=== PATIENT | male | born 1945 | race Caucasian/White ===

== ENCOUNTER → 2016-10-12 | Outpatient (CLI) | payer OTHER ==
[~2016-10-12] MED LIST: ACET-1311 PO; AMLO-110 PO; AMLO-114 PO; AMOX1TAB43 PO; ASPI-232 PO; ERGO500037 PO; LVQ750 PO; METO-551 PO; OPTIRAY 320 IV PRN; OXYC2.5T4 PO; RXC5 PO; SULF-183 PO; VTMD PO; ZNTT/150 PO
--- NOTE | 2016-10-12 13:29 | DIAGNOSTIC IMAGING REPORT ---
CT ANGIOGRAM OF THE ABDOMEN, PELVIS, BILATERAL LOWER EXTREMITIES HISTORY: PAIN IN LEGS WHEN WALKING TECHNIQUE: Multiaxial CT images of the abdomen, pelvis, bilateral lower extremities were performed following the use of intravenous contrast to evaluate the arterial structures. Maximal intensity projection images were also obtained. COMPARISON STUDY: None. FINDINGS: There are poststernotomy changes. The heart is borderline enlarged. Focal moderate stenosis at the origin of the celiac artery. No significant stenosis seen within the superior mesenteric artery, inferior mesenteric artery, or renal arteries. Moderate atherosclerotic plaque seen throughout the normal caliber abdominal aorta. The bilateral common iliac and external iliac arteries show no significant stenosis. On the left: The common femoral artery is patent. The majority of the left superficial femoral artery demonstrates multifocal mild to moderate stenosis. At the proximal left superficial femoral artery on image 456 there is approximately 50% stenosis. However, there is approximately 70% stenosis at the distal left superficial femoral artery on image 626. No significant stenosis within the popliteal artery. There is 3 vessel runoff within the left lower leg without significant stenosis. On the right: No significant stenosis within the common femoral artery. There is approximately 50% stenosis at the origin of the right superficial femoral artery. Multifocal [id number] narrowing within the right mid superficial femoral artery. Multifocal areas of moderate to severe narrowing within the distal right superficial femoral artery. This is most pronounced on images 581 and 654 with areas 80-90% stenosis. There is a 5 mm proximal popliteal artery aneurysm on image 705. No significant stenosis within the popliteal artery. There is 3 vessel runoff within the right lower leg without significant stenosis. Subcutaneous edema within the bilateral lower legs and feet. The lung bases are clear. Posterior decompression fusion from L2 through S1 with pedicle screws and rods. Cholecystectomy. The liver, spleen, pancreas, and adrenal glands are unremarkable. The kidneys enhance normally. No hydronephrosis. No retroperitoneal lymphadenopathy. The bladder is unremarkable. No bowel wall thickening or obstruction. A few sigmoid diverticula. IMPRESSION: 1. Multifocal stenosis within the bilateral superficial femoral arteries as described above, right greater than left. 2. There is bilateral three-vessel runoff. 3. Focal moderate stenosis at the origin of the celiac artery of approximately 50%. 4. A 5 mm right popliteal artery aneurysm. Electronically signed by: Kalia Max M.D. 10/12/2016 1:27 PM Dictated Date/Time: 10/12/2016 1:12 PM
== END | disposition home or self-care (01) ==
LOC: C.CTS 12:16
PROVIDERS: ATTEND Internal Medicine
DX: I70.209 Unspecified atherosclerosis of native arteries of extremities, unspecified extremity (principal); R25.2 Cramp and spasm; I72.4 Aneurysm of artery of lower extremity; I25.10 Atherosclerotic heart disease of native coronary artery without angina pectoris; E78.5 Hyperlipidemia, unspecified; I77.4 Celiac artery compression syndrome; Z98.62 Peripheral vascular angioplasty status

== ENCOUNTER 2016-12-21 13:52 | Inpatient (IN) | payer OTHER ==
[~2016-12-21] VITALS: Ht 170.2 cm; Wt 98.7 kg
[~2016-12-21 13:52] MED LIST changes: -ACET-1311 PO; -AMLO-114 PO; -AMOX1TAB43 PO; -ERGO500037 PO; -LVQ750 PO; -OPTIRAY 320 IV PRN; -OXYC2.5T4 PO; -RXC5 PO; -SULF-183 PO; -VTMD PO
[2016-12-21 14:38] LABS: BASO % 0.3 %; BASO ABS # 0.03 K/uL (0-0.2); COMPLETE YES; EOS % 2.6 %; HEMATOCRIT 40.6 % (42-52); IG% 1.7 %; LYMPH % 13.5 %; LYMPH ABS # 1.36 K/uL (1.2-3.4); MEAN CELL VOLUME 86.8 fL (80-100); MEAN CORPUSCULAR HEMOGLOBIN 30.3 pg (25-34); MEAN PLATELET VOLUME 10.3 fL (7.4-10.4); MONO % 11.1 %; NEUT % 70.8 %; PLATELET COUNT 251 K/uL (130-400); RED BLOOD COUNT 4.68 M/uL (4.7-6.1); WHITE BLOOD COUNT 10.11 K/uL (4.8-10.8)
[2016-12-21 14:56] LABS: BUN/CREATININE RATIO 13.7 (10-20); CALCIUM 8.7 mg/dl (8.5-10.1); CREATININE 0.79 mg/dl (0.60-1.40); PARTIAL THROMBOPLASTIN RATIO 1.3; POTASSIUM 3.9 mmol/L (3.5-5.1); PROTHROMBIN TIME (PATIENT) 11.2 SECONDS (9.0-12.0)
[2016-12-21 14:59] LABS: ALB/GLOB RATIO 0.5 (0.9-2)
[2016-12-21] MEDS ORDERED: CEFTRIAXONE SOD INJ 1 GM ADDVIAL IV STA (15:00)
[2016-12-21] MEDS ORDERED: ONDANSETRON INJ 2 MG/ML 2 ML VIAL IV STA (15:00)
[2016-12-21] MEDS ORDERED: VANCOMYCIN INJ 2,000 MG in SODIUM CHLORIDE 0.9% 500ML 500 ML IV STA (15:00)
[2016-12-21] MEDS ORDERED: HYDROmorphone INJ 1 MG/ML SYR IV PRN (15:00)
--- NOTE | 2016-12-21 15:59 | DIAGNOSTIC IMAGING REPORT ---
LEFT LOWER EXTREMITY VENOUS DOPPLER HISTORY: Left leg swelling. EVALUATE FOR DVT COMPARISON STUDY: None. FINDINGS: There is normal compressibility, flow, and augmentation within the left lower extremity deep venous system. Subcutaneous edema within the left lower extremity. IMPRESSION: No DVT within the left lower extremity. Electronically signed by: Kalia Max M.D. 12/21/2016 3:58 PM Dictated Date/Time: 12/21/2016 3:57 PM
--- NOTE | 2016-12-21 16:50 | DIAGNOSTIC IMAGING REPORT ---
ULTRASOUND LEFT LOWER EXTREMITY ARTERIAL CLINICAL HISTORY: Left leg pain. Cellulitis. COMPARISON STUDY: CT angiogram of the left lower extremity dated 10/12/2016. TECHNIQUE: Real-time, grayscale, and color Doppler sonography of the arteries of the left lower extremity is performed from the inguinal crease to the foot. Ankle-brachial indices were not assessed as the patient could not tolerate the procedure. FINDINGS: There is advanced atherosclerotic plaque and irregularity seen throughout the arteries of the left lower extremity. The common femoral artery is patent and demonstrates biphasic waveforms. Velocities in the left common femoral artery measure up to 159 cm/s. The left profunda femoris artery is patent with velocities measuring up to 139 cm/s. There are elevated velocities within the proximal left superficial femoral artery measure up to 277 cm/s. Biphasic waveforms are noted. Velocities in the midportion of the superficial femoral artery measure up to 209 cm/s, and mildly elevated velocities are seen within the distal left superficial femoral artery measuring up to 240 cm/s. There is slight blunting of the arterial upstroke within monophasic to biphasic waveforms in the left popliteal artery and the calf vessels. Velocities in the left popliteal artery measure up to 94 cm/s. There is three-vessel runoff to the left foot. Velocities within the left anterior tibial artery measure 74 cm/s, velocities in the left peroneal artery measure up to 47 cm/s, and velocities in the left posterior tibial artery measure up to 65 cm/s. The left dorsalis pedis artery is patent with velocities measuring up to 69 cm/s. IMPRESSION: 1. Peripheral vascular disease in the left lower extremity as above. No focal vessel cut off is identified in the left lower extremity. 2. There are several foci of increased velocity noted within the left superficial femoral artery consistent with stenoses. This was better characterized on a 10/12/2016 CT angiogram of the left lower extremity. Dictated: 12/21/2016 3:58 PM Transcribed: 12/21/2016 4:50 PM [place] Electronically signed by: Ramses Bermudez M.D. 12/21/2016 4:53 PM Dictated Date/Time: 12/21/2016 3:58 PM
--- NOTE | 2016-12-21 18:15 | EMERGENCY ROOM VISIT NOTE ---
History Report prepared by Lida: Marielos Patterson Under the Supervision of: Dr. Gilmer Cordova M.D. First contact with patient: 14:33 Chief Complaint: LEG PAIN,LEG INJURY Stated Complaint: LEFT LEG SWOLLEN, PAIN History of Present Illness The patient is a 71 year old male who presents to the Emergency Room with complaints of worsening left leg pain which started over 3 days ago. He describes his pain as an ache and currently rates his discomfort as a 8/10 in severity. He was in the [facility] for the past 3 days. He left without being discharged because his leg was increasingly red and painful and presented to the ED here. He reports the redness and pain has spread up to his thigh. He received a dose on Vancomycin and Ancef in the [place] ED. In the hospital, he was receiving Percocet and [place] for pain and Unasyn as an antibiotic. He had a scan on his leg while he was in the hospital, but there was no evidence of any blood clots. He has had cellulitis before in the legs, but it has never been this severe. Pt denies LOC, headache, fevers, chills, diaphoresis, visual changes, neck pain, chest pain, breathing difficulties, nausea, vomiting, abdominal pain, back pain, melena, hematochezia, urinary symptoms, numbness, weakness, lymphadenopathy, or other complaints. Source of History: patient Onset: over 3 days ago Position: leg (left) Symptom Intensity: 8/10 Quality: ache Timing: worsening Note: Pt reports redness and swelling in his leg. Review of Systems See HPI for pertinent positives and negatives. A total of ten systems were reviewed and were otherwise negative. Past Medical & Surgical Medical Problems: (1) Cellulitis (2) Chronic cholecystitis (3) Hypertension Family History Pt reports no pertinent family history. Social History Smoking Status: Never Smoker Marital Status: Housing Status: lives with family Occupation Status: retired Current/Historical Medications Scheduled Amlodipine (Norvasc), 5 MG PO QPM Aspirin (Aspir-81), 81 MG PO QPM Metoprolol Tartrate (Lopressor), 50 MG PO BID Ranitidine (Zantac), 150 MG PO HS Allergies Coded Allergies: Atorvastatin (Unverified Allergy, Unknown, unknown, 12/30/15) Per PCP note Enalapril (Unverified Allergy, Unknown, unknown, 12/30/15) Per PCP note Lovastatin (Unverified Allergy, Unknown, unknown, 12/30/15) Per PCP note Pravastatin (Unverified Allergy, Unknown, unknown, 12/30/15) Per PCP note Simvastatin (Unverified Allergy, Unknown, unknown, 12/30/15) Per PCP note Physical Exam Vital Signs Date Time Temp Pulse Resp B/P Pulse Ox O2 Delivery O2 Flow Rate FiO2 12/21/16 16:20 87 18 146/86 97 Room Air 12/21/16 13:59 37.4 83 18 157/85 98 Room Air Physical Exam GENERAL: Awake, alert, well-appearing, in no distress HENT: Normocephalic, atraumatic. Oropharynx unremarkable. EYES: Normal conjunctiva. Sclera non-icteric. NECK: Supple. No nuchal rigidity. FROM. No JVD. RESPIRATORY: Clear to auscultation. CARDIAC: Regular rate, normal rhythm. Extremities warm and well perfused. Pulses equal. ABDOMEN: Soft, non-distended. No tenderness to palpation. No rebound or guarding. No masses. RECTAL: Deferred. MUSCULOSKELETAL: Chest examination reveals no tenderness. The back is symmetrical on inspection without obvious abnormality. There is no CVA tenderness to palpation. No joint edema. LOWER EXTREMITIES: Left calf is larger than the right. Warmth and erythema extending up to the knee throughout and past the knee to the left lateral thigh. 3+ edema of left lower leg. NEURO: Normal sensorium. No sensory or motor deficits noted. SKIN: No rash or jaundice noted. Medical Decision & Procedures ER Provider Diagnostic Interpretation: Radiology results as stated below per my review and radiologist interpretation. LEFT LOWER EXTREMITY VENOUS DOPPLER HISTORY: Left leg swelling. EVALUATE FOR DVT COMPARISON STUDY: None. FINDINGS: There is normal compressibility, flow, and augmentation within the left lower extremity deep venous system. Subcutaneous edema within the left lower extremity. IMPRESSION: No DVT within the left lower extremity. Electronically signed by: Kalia Max M.D. 12/21/2016 3:58 PM Dictated Date/Time: 12/21/2016 3:57 PM ULTRASOUND LEFT LOWER EXTREMITY ARTERIAL CLINICAL HISTORY: Left leg pain. Cellulitis. COMPARISON STUDY: CT angiogram of the left lower extremity dated 10/12/2016. TECHNIQUE: Real-time, grayscale, and color Doppler sonography of the arteries of the left lower extremity is performed from the inguinal crease to the foot. Ankle-brachial indices were not assessed as the patient could not tolerate the procedure. FINDINGS: There is advanced atherosclerotic plaque and irregularity seen throughout the arteries of the left lower extremity. The common femoral artery is patent and demonstrates biphasic waveforms. Velocities in the left common femoral artery measure up to 159 cm/s. The left profunda femoris artery is patent with velocities measuring up to 139 cm/s. There are elevated velocities within the proximal left superficial femoral artery measure up to 277 cm/s. Biphasic waveforms are noted. Velocities in the midportion of the superficial femoral artery measure up to 209 cm/s, and mildly elevated velocities are seen within the distal left superficial femoral artery measuring up to 240 cm/s. There is slight blunting of the arterial upstroke within monophasic to biphasic waveforms in the left popliteal artery and the calf vessels. Velocities in the left popliteal artery measure up to 94 cm/s. There is three-vessel runoff to the left foot. Velocities within the left anterior tibial artery measure 74 cm/s, velocities in the left peroneal artery measure up to 47 cm/s, and velocities in the left posterior tibial artery measure up to 65 cm/s. The left dorsalis pedis artery is patent with velocities measuring up to 69 cm/s. IMPRESSION: 1. Peripheral vascular disease in the left lower extremity as above. No focal vessel cut off is identified in the left lower extremity. 2. There are several foci of increased velocity noted within the left superficial femoral artery consistent with stenoses. This was better characterized on a 10/12/2016 CT angiogram of the left lower extremity. Electronically signed by: Ramses Bermudez M.D. 12/21/2016 4:53 PM Dictated Date/Time: 12/21/2016 3:58 PM Laboratory Results 12/21/16 14:30 Red Blood Count 4.68, Mean Corpuscular Volume 86.8, Mean Corpuscular Hemoglobin 30.3, Mean Corpuscular Hemoglobin Concent 35.0, Mean Platelet Volume 10.3, Neutrophils (%) (Auto) 70.8, Lymphocytes (%) (Auto) 13.5, Monocytes (%) (Auto) 11.1, Eosinophils (%) (Auto) 2.6, Basophils (%) (Auto) 0.3, Neutrophils # (Auto ) 7.17, Lymphocytes # (Auto) 1.36, Monocytes # (Auto) 1.12, Eosinophils # (Auto ) 0.26, Basophils # (Auto) 0.03 12/21/16 14:30 Test 12/21/16 14:30 White Blood Count 10.11 K/uL (4.8-10.8) Red Blood Count 4.68 M/uL (4.7-6.1) Hemoglobin 14.2 g/dL (14.0-18.0) Hematocrit 40.6 % (42-52) Mean Corpuscular Volume 86.8 fL (80-100) Mean Corpuscular Hemoglobin 30.3 pg (25-34) Mean Corpuscular Hemoglobin Concent 35.0 g/dl (32-36) Platelet Count 251 K/uL (130-400) Mean Platelet Volume 10.3 fL (7.4-10.4) Neutrophils (%) (Auto) 70.8 % Lymphocytes (%) (Auto) 13.5 % Monocytes (%) (Auto) 11.1 % Eosinophils (%) (Auto) 2.6 % Basophils (%) (Auto) 0.3 % Neutrophils # (Auto) 7.17 K/uL (1.4-6.5) Lymphocytes # (Auto) 1.36 K/uL (1.2-3.4) Monocytes # (Auto) 1.12 K/uL (0.11-0.59) Eosinophils # (Auto) 0.26 K/uL (0-0.5) Basophils # (Auto) 0.03 K/uL (0-0.2) RDW Standard Deviation 45.9 fL (36.4-46.3) RDW Coefficient of Variation 14.5 % (11.5-14.5) Immature Granulocyte % (Auto) 1.7 % Immature Granulocyte # (Auto) 0.17 K/uL (0.00-0.02) Erythrocyte Sedimentation Rate > 90 mm/hr (0-14) Prothrombin Time 11.2 SECONDS (9.0-12.0) Prothromb Time International Ratio 1.0 (0.9-1.1) Activated Partial Thromboplast Time 33.7 SECONDS (21.0-31.0) Partial Thromboplastin Ratio 1.3 Anion Gap 7.0 mmol/L (3-11) Est Creatinine Clear Calc Drug Dose 97.4 ml/min Estimated GFR () 106.2 Estimated GFR (Non- 91.6 BUN/Creatinine Ratio 13.7 (10-20) Calcium Level 8.7 mg/dl (8.5-10.1) Total Bilirubin 1.5 mg/dl (0.2-1) Aspartate Amino Transf (AST/SGOT) 86 U/L (15-37) Alanine Aminotransferase (ALT/SGPT) 77 U/L (12-78) Alkaline Phosphatase 384 U/L (45-117) C-Reactive Protein 21.50 mg/dl (0-0.29) Total Protein 7.3 gm/dl (6.4-8.2) Albumin 2.4 gm/dl (3.4-5.0) Globulin 4.9 gm/dl (2.5-4.0) Albumin/Globulin Ratio 0.5 (0.9-2) Laboratory results reviewed by me Medications Administered Medications (Trade) Dose Ordered Sig/Todd Route Start Time Stop Time Status Last Admin Dose Admin Hydromorphone HCl (Dilaudid Inj) 1 mg Q15M PRN IV 12/21/16 15:00 12/21/16 19:52 DC 12/21/16 16:18 1 MG Ondansetron HCl 4 mg 4 mg NOW STAT IV 12/21/16 15:00 12/21/16 15:02 DC 12/21/16 16:18 4 MG Vancomycin HCl/ Sodium Chloride (Vancomycin Inj/ Nss 500ml) 540 ml @ 200 mls/hr ONE STAT IV 12/21/16 15:00 12/21/16 17:41 DC 12/21/16 16:17 200 MLS/HR Ceftriaxone Sodium (Rocephin Inj) 1 gm NOW STAT IV 12/21/16 15:00 12/21/16 15:02 DC 12/21/16 16:17 1 GM ED Course 1452: The patient was evaluated in room C9. A complete history and physical exam was performed. 1500: Rocephin Inj 1 gm IV, Vancomycin HCl 2000 mg/Sodium Chloride 540 ml @ 200 mls/hr IV, Zofran Inj 4 mg IV, Dilaudid 1 mg IV. 1706: I reevaluated the patient. He is feeling better. I discussed the test results and treatment plan with him. He verbalized understanding and agreement. The patient will be evaluated for further management. 172: I discussed the patient's case with ROMEO Mcallister - hospitalist. The patient will be evaluated for further treatment and disposition. Medical Decision Triage Nursing notes reviewed. The patient's presentation and history were concerning for swollen leg. Etiologies such as DVT, joint effusion, infection, trauma, muscular, lymphedema , idiopathic, CHF, as well as others were entertained. Patient was evaluated. Physical examination was concerning for cellulitis. He was previously treated with vancomycin 1 time and then Unasyn as an inpatient [place] [facility] The patient had an unremarkable CBC and coags. Mild increased LFTs. Arterial and venous Doppler of the left leg did not reveal any emergent pathology. The patient was given vancomycin and Rocephin. Consultation was made with internal medicine. The patient was also treated with Dilaudid and Zofran. On reassessment he was feeling much better. The patient was evaluated by internal medicine for further management. The chart was completed utilizing [employer] Speech voice recognition software. Grammatical errors, random word insertions, pronoun errors, and incomplete sentences are an occasional consequence of this system due to software limitations, ambient noise, and hardware issues. Any formal questions or concerns about the content, text, or information contained within the body of this dictation should be directly addressed to the physician for clarification. Consults Time Called: 1722 Consulting Physician: ROMEO Mcallister - hospitalist Returned Call: [phone] Discussed the patient's case. The patient will be evaluated for further treatment and disposition. Impression Primary Impression: Cellulitis Scribe Attestation The scribe's documentation has been prepared under my direction and personally reviewed by me in its entirety. I confirm that the note above accurately reflects all work, treatment, procedures, and medical decision making performed by me. Departure Information Dispostion Being Evaluated By Hospitalist Referrals Urvashi Fuller D.O. (PCP) Patient Instructions [facility]
[2016-12-21] MEDS ORDERED: ONDANSETRON INJ 2 MG/ML 2 ML VIAL IV PRN (18:30)
--- NOTE | 2016-12-21 18:34 | History and Physical ---
History & Physical Date & Time of Service: Dec 21, 2016 at 18:26 Chief Complaint: Left Leg Swollen, Pain Primary Care Physician: Urvashi Fuller D.O. History of Present Illness Source: patient, family, spouse Pt is a 71 yo male who presents to the ER with complaints of worsening left leg pain, swelling and redness which started 5 days ago. Pt reports first going to [facility] [place] where he was put on PO antibiotics but noticed worsening spread of infection from foot to thigh. Pt was told by PCP to go to [place] ER. Pt reports "they kept changing antibiotics" and the infection wasn't getting any better. He left [place] and came to [facility] ED for continuation of tx. He denies any fevers or chills but states pain is too great to even walk. Pt denies any trauma, bites to leg. He has had cellulitis before in the legs, but it has never been this severe. Pt denies LOC, headache, fevers, chills, diaphoresis, visual changes, neck pain, chest pain, breathing difficulties, nausea, vomiting, abdominal pain, back pain, melena, hematochezia, urinary symptoms, numbness, weakness, lymphadenopathy, or other complaints. Past Medical/Surgical History Medical Problems: (1) Cellulitis Status: Resolved (2) Hypertension Status: Chronic Social History Smoking Status: Never Smoker Smokeless Tobacco Use: No Marital Status: Occupational Status: retired Allergies Coded Allergies: Atorvastatin (Unverified Allergy, Unknown, unknown, 12/30/15) Per PCP note Enalapril (Unverified Allergy, Unknown, unknown, 12/30/15) Per PCP note Lovastatin (Unverified Allergy, Unknown, unknown, 12/30/15) Per PCP note Pravastatin (Unverified Allergy, Unknown, unknown, 12/30/15) Per PCP note Simvastatin (Unverified Allergy, Unknown, unknown, 12/30/15) Per PCP note Home Medications Scheduled Amlodipine (Norvasc), 5 MG PO QPM Aspirin (Aspir-81), 81 MG PO QPM Metoprolol Tartrate (Lopressor), 50 MG PO BID Ranitidine (Zantac), 150 MG PO HS Review of Systems Constitutional: No chills, No fever Respiratory: No cough, No sputum Cardiovascular: No chest pain, No orthopnea Abdomen: No nausea, No pain Musculoskeletal: + calf pain, + muscle pain, + swelling, No joint pain Genitourinary - Male: No dysuria, No hematuria, No urinary frequency Psychiatric: No anhedonism, No depression symptoms Endocrine: No excessive thirst, No fatigue Physical Exam Vital Signs Date Time Temp Pulse Resp B/P Pulse Ox O2 Delivery O2 Flow Rate FiO2 12/21/16 16:20 87 18 146/86 97 Room Air 12/21/16 13:59 37.4 83 18 157/85 98 Room Air General Appearance: WD/WN, + mild distress Neck: supple, no adenopathy Respiratory/Chest: lungs clear, normal breath sounds Cardiovascular: no edema, no gallop Abdomen/GI: non tender, soft Extremities/Musculoskelatal: + calf tenderness, + inflammation (left leg redness and swelling) Neurologic/Psych: alert, oriented x 3 Diagnostics Laboratory Results Results Past 24 Hours Test 12/21/16 14:30 12/21/16 18:19 Range/Units White Blood Count 10.11 4.8-10.8 K/uL Red Blood Count 4.68 4.7-6.1 M/uL Hemoglobin 14.2 14.0-18.0 g/dL Hematocrit 40.6 42-52 % Mean Corpuscular Volume 86.8 80-100 fL Mean Corpuscular Hemoglobin 30.3 25-34 pg Mean Corpuscular Hemoglobin Concent 35.0 32-36 g/dl Platelet Count 251 130-400 K/uL Mean Platelet Volume 10.3 7.4-10.4 fL Neutrophils (%) (Auto) 70.8 % Lymphocytes (%) (Auto) 13.5 % Monocytes (%) (Auto) 11.1 % Eosinophils (%) (Auto) 2.6 % Basophils (%) (Auto) 0.3 % Neutrophils # (Auto) 7.17 1.4-6.5 K/uL Lymphocytes # (Auto) 1.36 1.2-3.4 K/uL Monocytes # (Auto) 1.12 0.11-0.59 K/uL Eosinophils # (Auto) 0.26 0-0.5 K/uL Basophils # (Auto) 0.03 0-0.2 K/uL RDW Standard Deviation 45.9 36.4-46.3 fL RDW Coefficient of Variation 14.5 11.5-14.5 % Immature Granulocyte % (Auto) 1.7 % Immature Granulocyte # (Auto) 0.17 0.00-0.02 K/uL Prothrombin Time 11.2 9.0-12.0 SECONDS Prothromb Time International Ratio 1.0 0.9-1.1 Activated Partial Thromboplast Time 33.7 21.0-31.0 SECONDS Partial Thromboplastin Ratio 1.3 Sodium Level 139 136-145 mmol/L Potassium Level 3.9 3.5-5.1 mmol/L Chloride Level 101 98-107 mmol/L Carbon Dioxide Level 31 21-32 mmol/L Anion Gap 7.0 3-11 mmol/L Blood Urea Nitrogen 11 7-18 mg/dl Creatinine 0.79 0.60-1.40 mg/dl Est Creatinine Clear Calc Drug Dose 97.4 ml/min Estimated GFR () 106.2 Estimated GFR (Non- 91.6 BUN/Creatinine Ratio 13.7 10-20 Random Glucose 86 70-99 mg/dl Calcium Level 8.7 8.5-10.1 mg/dl Total Bilirubin 1.5 0.2-1 mg/dl Aspartate Amino Transf (AST/SGOT) 86 15-37 U/L Alanine Aminotransferase (ALT/SGPT) 77 12-78 U/L Alkaline Phosphatase 384 45-117 U/L Total Protein 7.3 6.4-8.2 gm/dl Albumin 2.4 3.4-5.0 gm/dl Globulin 4.9 2.5-4.0 gm/dl Albumin/Globulin Ratio 0.5 0.9-2 Microbiology Results 12/21/16 Blood Culture, Received Pending 12/21/16 Blood Culture, Received Pending Impression Assessment and Plan Pt is a 71 yo male with hx of CABG in 2009, HTN who presents to ER with left leg redness swelling and pain for past 5 days Left leg cellulitis - Will place on rocephin 2 gram IV daily in addition to vancomycin. Blood culture pending at this time. LE US neg for any DVT. No leukocytosis or fevers noted. Pain control with percocet. CAD - S/P CABG in 2009, stable at this time, cont home meds of norvasc, ASA, metoprolol. Pt states allergy to statin HTN - Cont home meds Pt is FULL CODE VTE Prophylaxis VTE Risk Assessment Done? Y/N: Yes Risk Level: Moderate
[2016-12-21 19:10] VITALS: BP 136/83; PULSE 89; TEMP 36.7; O2SAT 97
[2016-12-21] MEDS: OXYCODONE/ACETAMINOPHEN 5-325 TAB PO PRN (20:05)
--- NOTE | 2016-12-21 20:40 | Pharmacy Progress Note ---
Pharmacy Antibiotic Consult Date of Service: Dec 21, 2016. Pharmacy Dosing Scope Pharmacy is consulted to initiate vancomycin IV dosing therapy, order appropriate labs and adjust drug dose/frequency. Subjective The patient is a 71 year old male admitted on Dec 21, 2016 at 18:18. Objective Height (Feet): 5 Height (Inches): 7.00 Weight (Kilograms): 96.000 Lab Results (24hrs): Laboratory Tests Test 12/21/16 14:30 BUN/Creatinine Ratio 13.7 Blood Urea Nitrogen 11 mg/dl Creatinine 0.79 mg/dl White Blood Count 10.11 K/uL Red Blood Count 4.68 M/uL Hemoglobin 14.2 g/dL Hematocrit 40.6 % Mean Corpuscular Volume 86.8 fL Mean Corpuscular Hemoglobin 30.3 pg Mean Corpuscular Hemoglobin Concent 35.0 g/dl Platelet Count 251 K/uL Mean Platelet Volume 10.3 fL Neutrophils (%) (Auto) 70.8 % Lymphocytes (%) (Auto) 13.5 % Monocytes (%) (Auto) 11.1 % Eosinophils (%) (Auto) 2.6 % Basophils (%) (Auto) 0.3 % Neutrophils # (Auto) 7.17 K/uL Lymphocytes # (Auto) 1.36 K/uL Monocytes # (Auto) 1.12 K/uL Eosinophils # (Auto) 0.26 K/uL Basophils # (Auto) 0.03 K/uL Assessment & Plan Assessment * 71 yo M with cellulitis, failed inpatient treatment @ OSH. Currently ordered ceftriaxone and vancomycin * He was at an OSH for the past 3 days. Left AMA 2nd increased pain/swelling of leg * Received a dose of cefazolin and vancomycin in the ED @ OSH. While hospitalized, he was receiving Unasyn * eCrCL 97 mL/min * Received vancomycin 20 mg/kg in the ED here. Will continue with 15 mg/kg IV q12h * Trough prior to 4th overall dose Plan * Vancomycin 1500 mg IV q12h * Trough 12/23 @ 0130 Pharmacy will continue to follow and will adjust dose/frequency as necessary. Thank you
[2016-12-21] MEDS ORDERED: VANCOMYCIN CONSULT ACTIVE PRN (20:45)
[2016-12-21] MEDS ORDERED: VANCOMYCIN INJ 1,000 MG in SODIUM CHLORIDE 0.9% 250ML 250 ML IV SCH (21:00)
[2016-12-21 21:45] VITALS: BP 159/90; PULSE 89
[2016-12-21] MEDS: ASPIRIN 81 MG ECTAB PO SCH (21:48)
[2016-12-21] MEDS: AMLODIPINE BESYLATE 5 MG TAB PO SCH (21:48)
[2016-12-21] MEDS: RANITIDINE HCL 150 MG TAB PO SCH (21:48)
[2016-12-21] MEDS: METOPROLOL TARTRATE 50 MG TAB PO SCH (21:48)
[2016-12-21] MEDS: HEPARIN SOD 5000 UNIT/0.5 ML CARP SQ SCH (21:51)
[2016-12-21 21:53] VITALS: BP 136/83; PULSE 89; TEMP 36.7; Ht 170.2 cm; Wt 98.7 kg
[2016-12-21 23:21] VITALS: BP 137/78; PULSE 83; TEMP 36.7; O2SAT 94
[2016-12-22] VITALS (7 sets, daily range): BP systolic 128–173; BP diastolic 72–94; PULSE 79–91; TEMP 36.6–36.7; O2SAT 94–100
[2016-12-22] MEDS: OXYCODONE/ACETAMINOPHEN 5-325 TAB PO PRN ×5 (00:06→19:18)
[2016-12-22] MEDS: VANCOMYCIN INJ 1,500 MG in SODIUM CHLORIDE 0.9% 500ML 500 ML IV SCH ×2 (02:05→15:05)
[2016-12-22] MEDS: HEPARIN SOD 5000 UNIT/0.5 ML CARP SQ SCH ×3 (05:44→21:50)
[2016-12-22 06:25] LABS: BASO % 0.3 %; BASO ABS # 0.03 K/uL (0-0.2); COMPLETE YES; HEMATOCRIT 41.2 % (42-52); LYMPH % 16.3 %; LYMPH ABS # 1.52 K/uL (1.2-3.4); MEAN CELL VOLUME 88.2 fL (80-100); MEAN CORPUSCULAR HEMOGLOBIN 30.4 pg (25-34); MEAN CORPUSCULAR HGB CONC 34.5 g/dl (32-36); MONO % 12.1 %; NEUT % 65.3 %; PLATELET COUNT 223 K/uL (130-400); RED BLOOD COUNT 4.67 M/uL (4.7-6.1); WHITE BLOOD COUNT 9.32 K/uL (4.8-10.8)
[2016-12-22 07:28] LABS: BUN/CREATININE RATIO 17.4 (10-20); CALCIUM 8.2 mg/dl (8.5-10.1); CREATININE 0.68 mg/dl (0.60-1.40); POTASSIUM 3.6 mmol/L (3.5-5.1)
[2016-12-22] MEDS: METOPROLOL TARTRATE 50 MG TAB PO SCH ×2 (08:09→20:39)
[2016-12-22] MEDS ORDERED: CEFTRIAXONE SOD INJ 2,000 MG in DEXTROSE 5% 50ML 50 ML IV SCH (11:00)
--- NOTE | 2016-12-22 12:52 | Hospitalist Progress Note ---
Hospitalist Progress Note Date of Service Dec 22, 2016. Subjective Pt evaluation today including: conversation w/ patient, chart review Patient states leg slightly improved not moving quickly All Other Systems: Reviewed and Negative Medications Medications (Trade) Dose Ordered Sig/Todd Route Start Time Stop Time Status Last Admin Dose Admin Hydromorphone HCl (Dilaudid Inj) 1 mg Q15M PRN IV 12/21/16 15:00 12/21/16 19:52 DC 12/21/16 16:18 1 MG Ondansetron HCl 4 mg 4 mg NOW STAT IV 12/21/16 15:00 12/21/16 15:02 DC 12/21/16 16:18 4 MG Vancomycin HCl/ Sodium Chloride (Vancomycin Inj/ Nss 500ml) 540 ml @ 200 mls/hr ONE STAT IV 12/21/16 15:00 12/21/16 17:41 DC 12/21/16 16:17 200 MLS/HR Ceftriaxone Sodium (Rocephin Inj) 1 gm NOW STAT IV 12/21/16 15:00 12/21/16 15:02 DC 12/21/16 16:17 1 GM Heparin Sodium (Porcine) 5000 unit 5,000 unit Q8H SQ 12/21/16 22:00 01/20/17 21:59 12/22/16 05:44 5,000 UNIT Ceftriaxone Sodium/Dextrose (Rocephin Inj/D5 50ml) 70 ml @ 100 mls/hr Q24H IV 12/22/16 11:00 01/01/17 10:59 12/22/16 10:42 100 MLS/HR Amlodipine Besylate (Norvasc Tab) 5 mg QPM PO 12/21/16 21:00 01/20/17 20:59 12/21/16 21:48 5 MG Aspirin (Ecotrin Tab) 81 mg QPM PO 12/21/16 21:00 01/20/17 20:59 12/21/16 21:48 81 MG Metoprolol Tartrate (Lopressor Tab) 50 mg BID PO 12/21/16 20:00 01/20/17 20:59 12/22/16 08:09 50 MG Ranitidine HCl (zANTac TAB) 150 mg HS PO 12/21/16 21:00 01/20/17 20:59 12/21/16 21:48 150 MG Oxycodone/ Acetaminophen 1 tab 1 tab Q4H PRN PO 12/21/16 18:45 01/04/17 18:44 12/22/16 10:44 1 TAB Vancomycin HCl/ Sodium Chloride (Vancomycin Inj/ Nss 500ml) 530 ml @ 200 mls/hr Q12@0200,1400 IV 12/22/16 02:00 01/01/17 01:59 12/22/16 02:05 200 MLS/HR Objective Vital Signs Date Time Temp Pulse Resp B/P Pulse Ox O2 Delivery O2 Flow Rate FiO2 12/22/16 08:30 94 Room Air 12/22/16 07:21 36.7 79 16 128/72 94 Room Air 12/22/16 00:01 98 Room Air 12/22/16 00:00 Room Air 12/21/16 23:21 36.7 83 18 137/78 94 Room Air 12/21/16 21:53 36.7 89 20 136/83 12/21/16 21:45 89 159/90 12/21/16 19:10 36.7 89 20 136/83 97 Room Air 12/21/16 18:52 78 18 98 12/21/16 16:20 87 18 146/86 97 Room Air 12/21/16 13:59 37.4 83 18 157/85 98 Room Air Physical Exam General Appearance: WD/WN, no apparent distress Eyes: sclerae normal ENT: hearing grossly normal Neck: trachea midline Respiratory/Chest: chest non-tender, lungs clear Cardiovascular: regular rate, rhythm Extremities: + pertinent finding (cellulitic changes left leg up to calf) Laboratory Results Last 24 Hours Test 12/21/16 14:30 12/22/16 05:19 12/22/16 06:45 White Blood Count 10.11 K/uL 9.32 K/uL Red Blood Count 4.68 M/uL 4.67 M/uL Hemoglobin 14.2 g/dL 14.2 g/dL Hematocrit 40.6 % 41.2 % Mean Corpuscular Volume 86.8 fL 88.2 fL Mean Corpuscular Hemoglobin 30.3 pg 30.4 pg Mean Corpuscular Hemoglobin Concent 35.0 g/dl 34.5 g/dl Platelet Count 251 K/uL 223 K/uL Mean Platelet Volume 10.3 fL 11.0 fL Neutrophils (%) (Auto) 70.8 % 65.3 % Lymphocytes (%) (Auto) 13.5 % 16.3 % Monocytes (%) (Auto) 11.1 % 12.1 % Eosinophils (%) (Auto) 2.6 % 4.0 % Basophils (%) (Auto) 0.3 % 0.3 % Neutrophils # (Auto) 7.17 K/uL 6.08 K/uL Lymphocytes # (Auto) 1.36 K/uL 1.52 K/uL Monocytes # (Auto) 1.12 K/uL 1.13 K/uL Eosinophils # (Auto) 0.26 K/uL 0.37 K/uL Basophils # (Auto) 0.03 K/uL 0.03 K/uL RDW Standard Deviation 45.9 fL 47.9 fL RDW Coefficient of Variation 14.5 % 14.9 % Immature Granulocyte % (Auto) 1.7 % 2.0 % Immature Granulocyte # (Auto) 0.17 K/uL 0.19 K/uL Erythrocyte Sedimentation Rate > 90 mm/hr Prothrombin Time 11.2 SECONDS Prothromb Time International Ratio 1.0 Activated Partial Thromboplast Time 33.7 SECONDS Partial Thromboplastin Ratio 1.3 Sodium Level 139 mmol/L 139 mmol/L Potassium Level 3.9 mmol/L 3.6 mmol/L Chloride Level 101 mmol/L 104 mmol/L Carbon Dioxide Level 31 mmol/L 28 mmol/L Anion Gap 7.0 mmol/L 7.0 mmol/L Blood Urea Nitrogen 11 mg/dl 12 mg/dl Creatinine 0.79 mg/dl 0.68 mg/dl Est Creatinine Clear Calc Drug Dose 97.4 ml/min 114.8 ml/min Estimated GFR () 106.2 112.9 Estimated GFR (Non- 91.6 97.4 BUN/Creatinine Ratio 13.7 17.4 Random Glucose 86 mg/dl 93 mg/dl Calcium Level 8.7 mg/dl 8.2 mg/dl Total Bilirubin 1.5 mg/dl Aspartate Amino Transf (AST/SGOT) 86 U/L Alanine Aminotransferase (ALT/SGPT) 77 U/L Alkaline Phosphatase 384 U/L C-Reactive Protein 21.50 mg/dl Total Protein 7.3 gm/dl Albumin 2.4 gm/dl Globulin 4.9 gm/dl Albumin/Globulin Ratio 0.5 Assessment and Plan (1) Cellulitis Assessment & Plan: monitor progress and change ceftriaxone to unasyn with otoniel (2) Hypertension (3) DVT prophylaxis Assessment & Plan: heparin q 8 hours
[2016-12-22] MEDS: AMPICILLIN/SULBACTAM SOD INJ 3,000 MG in SODIUM CHLORIDE 0.9% 100ML 100 ML IV SCH ×2 (13:55→19:05)
[2016-12-22] MEDS: ASPIRIN 81 MG ECTAB PO SCH (20:39)
[2016-12-22] MEDS: AMLODIPINE BESYLATE 5 MG TAB PO SCH (20:40)
[2016-12-22] MEDS: RANITIDINE HCL 150 MG TAB PO SCH (20:40)
[2016-12-23] MEDS: OXYCODONE/ACETAMINOPHEN 5-325 TAB PO PRN ×3 (00:35→12:42)
[2016-12-23] MEDS: AMPICILLIN/SULBACTAM SOD INJ 3,000 MG in SODIUM CHLORIDE 0.9% 100ML 100 ML IV SCH ×4 (00:35→18:29)
[2016-12-23] MEDS ORDERED: MAGNESIUM HYDROXIDE SUSP 30 ML UDC ONE (00:46)
[2016-12-23] MEDS ORDERED: MAGNESIUM HYDROXIDE SUSP 30 ML UDC PO PRN (01:00)
[2016-12-23] MEDS ORDERED: NURSING VERBAL MED ORDER ONE (01:00)
[2016-12-23] MEDS ORDERED: VANCOMYCIN TROUGH ONE (01:30)
[2016-12-23] MEDS: VANCOMYCIN INJ 1,500 MG in SODIUM CHLORIDE 0.9% 500ML 500 ML IV SCH ×2 (01:49→13:39)
[2016-12-23 05:31] LABS: MEAN CELL VOLUME 87.5 fL (80-100); MEAN CORPUSCULAR HGB CONC 34.3 g/dl (32-36); PLATELET COUNT 301 K/uL (130-400); WHITE BLOOD COUNT 10.68 K/uL (4.8-10.8)
[2016-12-23 06:07] LABS: COMPLETE YES; EOSINOPHIL % 1.7 %; LYMPH ABS # 2.14 K/uL (1.2-3.4); METAMYELOCYTE % 0.9 %; NEUTROPHILS % 69.6 %
[2016-12-23 06:20] LABS: BLOOD UREA NITROGEN 12 mg/dl (7-18); BUN/CREATININE RATIO 16.6 (10-20); CALCIUM 7.8 mg/dl (8.5-10.1); CARBON DIOXIDE 31 mmol/L (21-32); CHLORIDE 105 mmol/L (98-107); CREATININE 0.73 mg/dl (0.60-1.40); GLUCOSE 126 mg/dl (70-99); SODIUM 140 mmol/L (136-145)
[2016-12-23] MEDS: HEPARIN SOD 5000 UNIT/0.5 ML CARP SQ SCH ×3 (06:37→21:32)
[2016-12-23 06:59] VITALS: BP 175/98; PULSE 74; PULSE 77; TEMP 36.8; O2SAT 100
[2016-12-23] MEDS: METOPROLOL TARTRATE 50 MG TAB PO SCH ×2 (07:26→20:11)
[2016-12-23 07:30] VITALS: O2SAT 100
[2016-12-23] MEDS: ACETAMINOPHEN 325 MG TAB PO PRN ×2 (10:09→21:33)
--- NOTE | 2016-12-23 13:34 | Pharmacy Progress Note ---
Pharmacy Antibiotic Prog Note Date of Service: Dec 23, 2016. Subjective: The patient is currently receiving Vancomycin 1500mg IV q12h. The patient is currently on day #3 of IV therapy. Objective: Height (Feet): 5 Height (Inches): 7.00 Weight (Kilograms): 98.700 Levels: Item Value Date Time Vancomycin Level Trough 10.5 mcg/ml 12/23/16 0149 Lab Results (24hrs): Laboratory Tests Test 12/23/16 05:20 BUN/Creatinine Ratio 16.6 Blood Urea Nitrogen 12 mg/dl Creatinine 0.73 mg/dl White Blood Count 10.68 K/uL Red Blood Count 4.00 M/uL Hemoglobin 12.0 g/dL Hematocrit 35.0 % Mean Corpuscular Volume 87.5 fL Mean Corpuscular Hemoglobin 30.0 pg Mean Corpuscular Hemoglobin Concent 34.3 g/dl Platelet Count 301 K/uL Mean Platelet Volume 10.0 fL Micro Results: Item Value Date Time Blood Culture - Preliminary Resulted 12/21/16 1500 Blood NO GROWTH TO DATE. Blood Culture - Preliminary Resulted 12/21/16 1510 Blood NO GROWTH TO DATE. Recent Pertinent Medications: Item Value Date Time Vancomycin HCl 540 ml @ 200 mls/hr 12/21/16 1500 2000 mg/Sodium ONE STAT/IV 12/21/16 1617 Chloride Vancomycin HCl 530 ml @ 200 mls/hr 12/22/16 0200 1500 mg/Sodium Q12@0200,1400/IV 12/23/16 0149 Chloride Item Value Date Time Ampicillin Sodium/ 108 ml @ 200 mls/hr 12/22/16 1300 Sulbactam Sodium Q6H/IV 12/23/16 1158 3000 mg/Sodium Chloride Assessment & Plan: Vancomycin * 71 yo M admitted with cellulitis (failed inpt tx @ [facility]) * Goal trough level: 10-20mcg/mL * Trough level drawn: 10.5mcg/mL --> Therapeutic * Continue: Vancomycin 1500mg IV q12h * Pt may be at increased risk for accumulation due to BMI ~ 34kg/m2 * Trough level recheck ordered for: 12/25/16 0200 dose Pharmacy will continue to follow and will adjust dose/frequency as necessary. Thank you
--- NOTE | 2016-12-23 13:55 | Hospitalist Progress Note ---
Hospitalist Progress Note Date of Service Dec 23, 2016. Subjective Pt evaluation today including: conversation w/ patient Pain: pain alleviated with percocet patient with no complaints other than pain which is improving with continued tx Medications Medications (Trade) Dose Ordered Sig/Todd Route Start Time Stop Time Status Last Admin Dose Admin Magnesium Hydroxide (Milk Of Magnesia Susp) 30 ml STK-MED ONCE .ROUTE 12/23/16 00:46 12/23/16 00:50 DC 12/23/16 01:13 30 ML Objective Vital Signs Date Time Temp Pulse Resp B/P Pulse Ox O2 Delivery O2 Flow Rate FiO2 12/23/16 07:30 100 Room Air 12/23/16 06:59 36.8 74 20 175/98 100 Room Air 77 12/23/16 00:00 Room Air 12/22/16 23:58 36.7 79 18 134/80 97 Room Air 12/22/16 20:37 91 173/94 12/22/16 16:00 100 Room Air 12/22/16 15:20 36.6 82 20 167/91 100 Room Air Physical Exam General Appearance: no apparent distress Eyes: normal inspection, sclerae normal ENT: hearing grossly normal Neck: trachea midline Respiratory/Chest: lungs clear Cardiovascular: regular rate, rhythm Abdomen: normal bowel sounds Extremities: normal range of motion Neurologic/Psychiatric: alert, normal mood/affect Skin: normal color Laboratory Results Last 24 Hours Test 12/23/16 01:49 12/23/16 05:20 12/23/16 07:00 Vancomycin Level Trough 10.5 mcg/ml White Blood Count 10.68 K/uL Red Blood Count 4.00 M/uL Hemoglobin 12.0 g/dL Hematocrit 35.0 % Mean Corpuscular Volume 87.5 fL Mean Corpuscular Hemoglobin 30.0 pg Mean Corpuscular Hemoglobin Concent 34.3 g/dl Platelet Count 301 K/uL Mean Platelet Volume 10.0 fL RDW Standard Deviation 47.0 fL RDW Coefficient of Variation 14.6 % Neutrophils % (Manual) 69.6 % Lymphocytes % (Manual) 20.0 % Monocytes % (Manual) 7.8 % Eosinophils % (Manual) 1.7 % Metamyelocytes % 0.9 % Neutrophils # (Manual) 7.43 K/uL Total Absolute Neutrophils 7.43 K/uL Lymphocytes # (Manual) 2.14 K/uL Total Absolute Lymphocytes 2.14 K/uL Monocytes # (Manual) 0.83 K/uL Eosinophils # (Manual) 0.18 K/uL Metamyelocytes # 0.10 K/uL Sodium Level 140 mmol/L Potassium Level mmol/L 4.4 mmol/L Chloride Level 105 mmol/L Carbon Dioxide Level 31 mmol/L Anion Gap 4.0 mmol/L Blood Urea Nitrogen 12 mg/dl Creatinine 0.73 mg/dl Est Creatinine Clear Calc Drug Dose 106.9 ml/min Estimated GFR () 109.7 Estimated GFR (Non- 94.6 BUN/Creatinine Ratio 16.6 Random Glucose 126 mg/dl Calcium Level 7.8 mg/dl Assessment and Plan (1) Cellulitis Assessment & Plan: Will continue Unasyn and Vanco....patient is responding to tx. Will change percocet ot oxycodone and have tylenol as needed. (2) Hypertension (3) DVT prophylaxis
[2016-12-23] MEDS ORDERED: AMLODIPINE BESYLATE 5 MG TAB PO ONE (14:15)
[2016-12-23 15:40] VITALS: BP 165/94; PULSE 75; TEMP 36.5; O2SAT 98
[2016-12-23 15:57] VITALS: BP 146/82; PULSE 82
[2016-12-23] MEDS: OXYCODONE HCL IR 5 MG TAB (IMMEDIATE RELEASE) PO PRN ×2 (19:24→23:43)
[2016-12-23] MEDS: ASPIRIN 81 MG ECTAB PO SCH (20:11)
[2016-12-23] MEDS: RANITIDINE HCL 150 MG TAB PO SCH (20:11)
[2016-12-23 23:42] VITALS: BP 146/84; PULSE 70; TEMP 36.7; O2SAT 98
[2016-12-24] MEDS: AMPICILLIN/SULBACTAM SOD INJ 3,000 MG in SODIUM CHLORIDE 0.9% 100ML 100 ML IV SCH ×4 (00:54→18:05)
[2016-12-24] MEDS: VANCOMYCIN INJ 1,500 MG in SODIUM CHLORIDE 0.9% 500ML 500 ML IV SCH ×2 (01:38→14:03)
[2016-12-24] MEDS: OXYCODONE HCL IR 5 MG TAB (IMMEDIATE RELEASE) PO PRN ×4 (04:29→17:38)
[2016-12-24 05:33] LABS: BASO % 0.3 %; BASO ABS # 0.03 K/uL (0-0.2); COMPLETE YES; EOS % 5.8 %; HEMATOCRIT 38.5 % (42-52); IG% 3.6 %; LYMPH % 16.4 %; LYMPH ABS # 1.65 K/uL (1.2-3.4); MEAN CELL VOLUME 90.4 fL (80-100); MEAN CORPUSCULAR HEMOGLOBIN 30.8 pg (25-34); MEAN PLATELET VOLUME 10.3 fL (7.4-10.4); MONO % 8.5 %; NEUT % 65.4 %; PLATELET COUNT 363 K/uL (130-400); RED BLOOD COUNT 4.26 M/uL (4.7-6.1); WHITE BLOOD COUNT 10.07 K/uL (4.8-10.8)
[2016-12-24 05:59] LABS: CALCIUM 8.1 mg/dl (8.5-10.1); CREATININE 0.82 mg/dl (0.60-1.40); POTASSIUM 4.1 mmol/L (3.5-5.1)
[2016-12-24] MEDS: HEPARIN SOD 5000 UNIT/0.5 ML CARP SQ SCH ×3 (06:00→20:38)
[2016-12-24 07:23] VITALS: BP 128/75; PULSE 75; TEMP 36.5; O2SAT 95
[2016-12-24] MEDS: AMLODIPINE BESYLATE 5 MG TAB PO SCH (08:30)
[2016-12-24] MEDS: METOPROLOL TARTRATE 50 MG TAB PO SCH ×2 (08:31→20:37)
[2016-12-24 11:30] VITALS: O2SAT 95
[2016-12-24 15:59] VITALS: BP 146/77; PULSE 82; TEMP 36.8; O2SAT 99
--- NOTE | 2016-12-24 17:04 | Hospitalist Progress Note ---
Hospitalist Progress Note Date of Service Dec 24, 2016. Subjective Pt evaluation today including: conversation w/ patient patient with no complaints pain increased when he goes to bathroom has an appointment with a vascular surgeon on Sunday Objective Vital Signs Date Time Temp Pulse Resp B/P Pulse Ox O2 Delivery O2 Flow Rate FiO2 12/24/16 15:59 36.8 82 18 146/77 99 Room Air 12/24/16 11:30 95 Room Air 12/24/16 07:23 36.5 75 18 128/75 95 Room Air 12/23/16 23:45 Room Air 12/23/16 23:42 36.7 70 20 146/84 98 Room Air Physical Exam General Appearance: no apparent distress Eyes: normal inspection, sclerae normal ENT: hearing grossly normal Neck: supple, trachea midline Respiratory/Chest: lungs clear Cardiovascular: regular rate, rhythm Abdomen: normal bowel sounds, non tender, soft Extremities: + swelling (cellulitis changes decreasing on daily basis.) Laboratory Results Last 24 Hours Test 12/24/16 05:10 White Blood Count 10.07 K/uL Red Blood Count 4.26 M/uL Hemoglobin 13.1 g/dL Hematocrit 38.5 % Mean Corpuscular Volume 90.4 fL Mean Corpuscular Hemoglobin 30.8 pg Mean Corpuscular Hemoglobin Concent 34.0 g/dl Platelet Count 363 K/uL Mean Platelet Volume 10.3 fL Neutrophils (%) (Auto) 65.4 % Lymphocytes (%) (Auto) 16.4 % Monocytes (%) (Auto) 8.5 % Eosinophils (%) (Auto) 5.8 % Basophils (%) (Auto) 0.3 % Neutrophils # (Auto) 6.59 K/uL Lymphocytes # (Auto) 1.65 K/uL Monocytes # (Auto) 0.86 K/uL Eosinophils # (Auto) 0.58 K/uL Basophils # (Auto) 0.03 K/uL RDW Standard Deviation 49.1 fL RDW Coefficient of Variation 15.0 % Immature Granulocyte % (Auto) 3.6 % Immature Granulocyte # (Auto) 0.36 K/uL Sodium Level 140 mmol/L Potassium Level 4.1 mmol/L Chloride Level 105 mmol/L Carbon Dioxide Level 28 mmol/L Anion Gap 7.0 mmol/L Blood Urea Nitrogen 10 mg/dl Creatinine 0.82 mg/dl Est Creatinine Clear Calc Drug Dose 95.2 ml/min Estimated GFR () 104.6 Estimated GFR (Non- 90.2 BUN/Creatinine Ratio 12.0 Random Glucose 87 mg/dl Calcium Level 8.1 mg/dl Assessment and Plan (1) Cellulitis Assessment & Plan: Will continue Unasyn and Vanco....patient is responding to tx. Patient continues to respond to current tx. Continue for 24-48 more hours and than dc. Anticipate discharge prior to vascular surgery appointment on Sunday. If this is not the case he can cancel on Sunday (2) Hypertension (3) DVT prophylaxis Assessment & Plan: heparin sq
[2016-12-24] MEDS: ASPIRIN 81 MG ECTAB PO SCH (20:37)
[2016-12-24] MEDS: RANITIDINE HCL 150 MG TAB PO SCH (20:37)
[2016-12-24 23:46] VITALS: BP 138/80; PULSE 71; TEMP 36.8; O2SAT 97
[2016-12-25] VITALS: O2SAT 95
[2016-12-25] MEDS: AMPICILLIN/SULBACTAM SOD INJ 3,000 MG in SODIUM CHLORIDE 0.9% 100ML 100 ML IV SCH ×4 (01:11→19:32)
[2016-12-25] MEDS: OXYCODONE HCL IR 5 MG TAB (IMMEDIATE RELEASE) PO PRN ×5 (01:14→23:40)
[2016-12-25] MEDS ORDERED: VANCOMYCIN TROUGH SCH (01:30)
[2016-12-25] MEDS: VANCOMYCIN INJ 1,500 MG in SODIUM CHLORIDE 0.9% 500ML 500 ML IV SCH (02:03)
[2016-12-25 05:33] LABS: BASO % 0.3 %; BASO ABS # 0.03 K/uL (0-0.2); COMPLETE YES; EOS % 5.2 %; HEMATOCRIT 37.5 % (42-52); LYMPH % 17.8 %; LYMPH ABS # 1.86 K/uL (1.2-3.4); MEAN CELL VOLUME 88.7 fL (80-100); MEAN CORPUSCULAR HEMOGLOBIN 29.8 pg (25-34); MEAN CORPUSCULAR HGB CONC 33.6 g/dl (32-36); MEAN PLATELET VOLUME 9.7 fL (7.4-10.4); MONO % 8.5 %; NEUT % 66.2 %; PLATELET COUNT 409 K/uL (130-400); RED BLOOD COUNT 4.23 M/uL (4.7-6.1); WHITE BLOOD COUNT 10.46 K/uL (4.8-10.8)
[2016-12-25] MEDS: HEPARIN SOD 5000 UNIT/0.5 ML CARP SQ SCH ×3 (05:55→21:17)
[2016-12-25 05:56] LABS: BUN/CREATININE RATIO 11.6 (10-20); CALCIUM 8.1 mg/dl (8.5-10.1); CREATININE 0.95 mg/dl (0.60-1.40); POTASSIUM 4.6 mmol/L (3.5-5.1)
[2016-12-25 07:19] VITALS: BP 127/75; PULSE 73; TEMP 36.8; O2SAT 96
[2016-12-25] MEDS: METOPROLOL TARTRATE 50 MG TAB PO SCH ×2 (07:33→19:36)
[2016-12-25] MEDS: AMLODIPINE BESYLATE 5 MG TAB PO SCH (07:33)
[2016-12-25 08:30] VITALS: O2SAT 96
--- NOTE | 2016-12-25 10:10 | Pharmacy Progress Note ---
Pharmacy Antibiotic Prog Note Date of Service: Dec 25, 2016. Subjective: The patient is currently receiving Vancomycin 1500 mg (~15mg/kg) IV every 12 hours for cellulitis that failed initial treatment at [facility]. The patient is currently on day # 510 of Vancomycin IV therapy. Objective: Height (Feet): 5 Height (Inches): 7.00 Weight (Kilograms): 98.700 Levels: Item Value Date Time Vancomycin Level Trough 13.0 mcg/ml 12/25/16 0135 Vancomycin Level Trough 10.5 mcg/ml 12/23/16 0149 Lab Results (24hrs): Laboratory Tests Test 12/25/16 05:20 BUN/Creatinine Ratio 11.6 Blood Urea Nitrogen 11 mg/dl Creatinine 0.95 mg/dl White Blood Count 10.46 K/uL Red Blood Count 4.23 M/uL Hemoglobin 12.6 g/dL Hematocrit 37.5 % Mean Corpuscular Volume 88.7 fL Mean Corpuscular Hemoglobin 29.8 pg Mean Corpuscular Hemoglobin Concent 33.6 g/dl Platelet Count 409 K/uL Mean Platelet Volume 9.7 fL Neutrophils (%) (Auto) 66.2 % Lymphocytes (%) (Auto) 17.8 % Monocytes (%) (Auto) 8.5 % Eosinophils (%) (Auto) 5.2 % Basophils (%) (Auto) 0.3 % Neutrophils # (Auto) 6.93 K/uL Lymphocytes # (Auto) 1.86 K/uL Monocytes # (Auto) 0.89 K/uL Eosinophils # (Auto) 0.54 K/uL Basophils # (Auto) 0.03 K/uL Micro Results: Item Value Date Time Blood Culture - Preliminary Resulted 12/21/16 1510 Blood NO GROWTH TO DATE. Blood Culture - Preliminary Resulted 12/21/16 1500 Blood NO GROWTH TO DATE. Recent Pertinent Medications: Item Value Date Time Ampicillin Sodium/ 108 ml @ 200 mls/hr 12/22/16 1300 Sulbactam Sodium Q6H/IV 12/25/16 0733 3000 mg/Sodium Chloride Ceftriaxone 70 ml @ 100 mls/hr 12/22/16 1100 Sodium 2000 mg/ Q24H/IV 12/22/16 1042 Dextrose Vancomycin HCl 540 ml @ 200 mls/hr 12/21/16 1500 2000 mg/Sodium ONE STAT/IV 12/21/16 1617 Chloride Pharmacy Consult Vancomycin HCl 530 ml @ 200 mls/hr 12/22/16 0200 1500 mg/Sodium Q12@0200,1400/IV 12/25/16 0203 Chloride Pharmacy Consult Assessment & Plan: Pharmacy has been consulted to dose and monitor Vancomycin for cellulitis that failed initial therapy at [facility]. Vancomycin trough level of 13mcg/mL is: slightly Subtherapeutic * Change to Vancomycin 1700 mg (~17mg/kg) IV every 12 hours. * Dose increased by ~13% in order to increase serum concentrations by ~13% and achieve therapeutic levels * Goal trough level estimate: ~15 mcg/mL. * Trough level has been ordered for: ~30 minutes before the 0200 dose to ensure therapeutic concentrations without causing Vancomycin accumulation and toxicity. Pharmacy will continue to follow and will adjust dose/frequency as necessary. Thank you
--- NOTE | 2016-12-25 13:22 | Progress Note ---
Subjective Date of Service: Dec 25, 2016. Subjective Pt evaluation today including: conversation w/ patient, physical exam, chart review, lab review, review of studies, review of inpatient medication list Review of Systems Constitutional: + fatigue, No chills, No fever Respiratory: No cough, No shortness of breath, No sputum, No wheezing Cardiac: No chest pain, No orthopnea Abdomen: No constipation, No diarrhea, No nausea, No pain, No vomiting Musculoskeletal: No joint pain, No muscle pain Male : No dysuria, No urinary frequency Objective Vital Signs Date Time Temp Pulse Resp B/P Pulse Ox O2 Delivery O2 Flow Rate FiO2 12/25/16 08:30 96 Room Air 12/25/16 07:19 36.8 73 16 127/75 96 Room Air 12/25/16 00:00 95 Room Air 12/24/16 23:46 36.8 71 18 138/80 97 Room Air 12/24/16 16:00 Room Air 12/24/16 15:59 36.8 82 18 146/77 99 Room Air Physical Exam General Appearance: WD/WN, no apparent distress Neck: supple, no adenopathy Respiratory/Chest: lungs clear, normal breath sounds Cardiovascular: no edema, no gallop Abdomen: non tender, soft Neurologic/Psychiatric: alert, oriented x 3 Laboratory Results Last 24 Hours Test 12/25/16 01:35 12/25/16 05:20 Vancomycin Level Trough 13.0 mcg/ml White Blood Count 10.46 K/uL Red Blood Count 4.23 M/uL Hemoglobin 12.6 g/dL Hematocrit 37.5 % Mean Corpuscular Volume 88.7 fL Mean Corpuscular Hemoglobin 29.8 pg Mean Corpuscular Hemoglobin Concent 33.6 g/dl Platelet Count 409 K/uL Mean Platelet Volume 9.7 fL Neutrophils (%) (Auto) 66.2 % Lymphocytes (%) (Auto) 17.8 % Monocytes (%) (Auto) 8.5 % Eosinophils (%) (Auto) 5.2 % Basophils (%) (Auto) 0.3 % Neutrophils # (Auto) 6.93 K/uL Lymphocytes # (Auto) 1.86 K/uL Monocytes # (Auto) 0.89 K/uL Eosinophils # (Auto) 0.54 K/uL Basophils # (Auto) 0.03 K/uL RDW Standard Deviation 47.5 fL RDW Coefficient of Variation 14.7 % Immature Granulocyte % (Auto) 2.0 % Immature Granulocyte # (Auto) 0.21 K/uL Sodium Level 141 mmol/L Potassium Level 4.6 mmol/L Chloride Level 106 mmol/L Carbon Dioxide Level 30 mmol/L Anion Gap 5.0 mmol/L Blood Urea Nitrogen 11 mg/dl Creatinine 0.95 mg/dl Est Creatinine Clear Calc Drug Dose 82.2 ml/min Estimated GFR () 94.3 Estimated GFR (Non- 81.3 BUN/Creatinine Ratio 11.6 Random Glucose 95 mg/dl Calcium Level 8.1 mg/dl Assessment and Plan (1) Cellulitis (2) Hypertension (3) DVT prophylaxis Pt is a 71 yo male with hx of CABG in 2009, HTN who presents to ER with left leg redness swelling and pain for past 5 days Left leg cellulitis - Initially on rocephin 2 gram IV daily in addition to vancomycin then switched to unasyn and vanc. Blood culture NGTD. LE US neg for any DVT. No leukocytosis or fevers noted. Pain control with percocet. Can likely convert to PO antibx in next 24 hrs. CAD - S/P CABG in 2009, stable at this time, cont home meds of norvasc, ASA, metoprolol. Pt states allergy to statin HTN - Cont home meds Pt is FULL CODE
[2016-12-25] MEDS: VANCOMYCIN INJ 1,700 MG in SODIUM CHLORIDE 0.9% 500ML 500 ML IV SCH (15:13)
[2016-12-25 15:55] VITALS: BP 166/78; PULSE 73; TEMP 36.7; O2SAT 97
[2016-12-25 16:30] VITALS: O2SAT 96
[2016-12-25] MEDS: ASPIRIN 81 MG ECTAB PO SCH (19:36)
[2016-12-25] MEDS: RANITIDINE HCL 150 MG TAB PO SCH (19:36)
[2016-12-25 20:00] VITALS: BP 132/78; PULSE 76
[2016-12-26 00:34] VITALS: BP 136/79; PULSE 71; TEMP 36.6; O2SAT 98
[2016-12-26] MEDS: AMPICILLIN/SULBACTAM SOD INJ 3,000 MG in SODIUM CHLORIDE 0.9% 100ML 100 ML IV SCH ×4 (01:27→19:11)
[2016-12-26] MEDS: VANCOMYCIN INJ 1,700 MG in SODIUM CHLORIDE 0.9% 500ML 500 ML IV SCH ×2 (02:25→13:59)
[2016-12-26] MEDS: OXYCODONE HCL IR 5 MG TAB (IMMEDIATE RELEASE) PO PRN ×4 (05:57→21:09)
[2016-12-26] MEDS: HEPARIN SOD 5000 UNIT/0.5 ML CARP SQ SCH ×3 (05:59→21:06)
[2016-12-26 06:46] LABS: BASO % 0.4 %; BASO ABS # 0.04 K/uL (0-0.2); COMPLETE YES; EOS % 4.7 %; IG% 1.3 %; LYMPH ABS # 1.79 K/uL (1.2-3.4); MEAN CELL VOLUME 89.6 fL (80-100); MEAN CORPUSCULAR HEMOGLOBIN 30.3 pg (25-34); MEAN CORPUSCULAR HGB CONC 33.9 g/dl (32-36); MEAN PLATELET VOLUME 9.6 fL (7.4-10.4); MONO % 10.3 %; NEUT % 63.3 %; PLATELET COUNT 413 K/uL (130-400); RED BLOOD COUNT 4.02 M/uL (4.7-6.1); WHITE BLOOD COUNT 8.93 K/uL (4.8-10.8)
[2016-12-26 07:15] LABS: BUN/CREATININE RATIO 16.5 (10-20); CALCIUM 7.8 mg/dl (8.5-10.1); CREATININE 0.74 mg/dl (0.60-1.40)
[2016-12-26] MEDS: AMLODIPINE BESYLATE 5 MG TAB PO SCH (08:32)
[2016-12-26] MEDS: METOPROLOL TARTRATE 50 MG TAB PO SCH ×2 (08:32→19:40)
[2016-12-26] MEDS: ACETAMINOPHEN 325 MG TAB PO PRN (08:32)
[2016-12-26 08:38] VITALS: BP 135/74; PULSE 79
[2016-12-26 15:31] VITALS: BP 118/70; PULSE 67; TEMP 36.5; O2SAT 98
[2016-12-26] MEDS: ASPIRIN 81 MG ECTAB PO SCH (20:58)
[2016-12-26] MEDS: RANITIDINE HCL 150 MG TAB PO SCH (20:58)
--- NOTE | 2016-12-26 23:35 | Progress Note ---
Subjective Date of Service: Dec 26, 2016. Subjective Pt evaluation today including: conversation w/ patient, physical exam, chart review, lab review, review of studies (doppler - arterial - left leg; venous doppler left leg), review of inpatient medication list Pain: minimal left leg PO Intake: good/improved Voiding: no voiding problems patient reports significant improvement in the redness/swelling/pain of left leg. he shows a picture he took of his left leg prior to initiation of IV abx therapy and there is marked improvement of the leg. he reports claudication with walking at home (calf pain). he was to see Dr. Pacheco tomorrow for his PAD. Review of Systems Constitutional: No chills, No fever Respiratory: No cough, No dyspnea on exertion, No shortness of breath Cardiac: No chest pain, No orthopnea Abdomen: No pain Objective Vital Signs Date Time Temp Pulse Resp B/P Pulse Ox O2 Delivery O2 Flow Rate FiO2 12/26/16 16:00 Room Air 12/26/16 15:31 36.5 67 18 118/70 98 Room Air 12/26/16 08:38 79 135/74 12/26/16 08:30 Room Air 12/26/16 00:34 36.6 71 20 136/79 98 Room Air 12/26/16 00:00 Room Air Physical Exam General Appearance: no apparent distress ENT: pharynx normal Neck: no JVD Respiratory/Chest: lungs clear, no respiratory distress, no accessory muscle use Cardiovascular: regular rate, rhythm, no gallop, no murmur Abdomen: normal bowel sounds, non tender, soft, no organomegaly Extremities: + swelling (extends from ankle to the left knee region), + pertinent finding (lymphedema, left foot/ankle) Neurologic/Psychiatric: alert, oriented x 3 Skin: + pertinent finding (mild cellulitis present of left leg - extends from inferior to the left knee to above the left ankle; some of the erythema wraps posteriorly to the calf) Comments: pulses - femoral 1+; popliteal <1+; DP and pos tib pulses <1+ (bilateral legs) Laboratory Results Last 24 Hours Test 12/26/16 06:20 White Blood Count 8.93 K/uL Red Blood Count 4.02 M/uL Hemoglobin 12.2 g/dL Hematocrit 36.0 % Mean Corpuscular Volume 89.6 fL Mean Corpuscular Hemoglobin 30.3 pg Mean Corpuscular Hemoglobin Concent 33.9 g/dl Platelet Count 413 K/uL Mean Platelet Volume 9.6 fL Neutrophils (%) (Auto) 63.3 % Lymphocytes (%) (Auto) 20.0 % Monocytes (%) (Auto) 10.3 % Eosinophils (%) (Auto) 4.7 % Basophils (%) (Auto) 0.4 % Neutrophils # (Auto) 5.64 K/uL Lymphocytes # (Auto) 1.79 K/uL Monocytes # (Auto) 0.92 K/uL Eosinophils # (Auto) 0.42 K/uL Basophils # (Auto) 0.04 K/uL RDW Standard Deviation 48.5 fL RDW Coefficient of Variation 14.8 % Immature Granulocyte % (Auto) 1.3 % Immature Granulocyte # (Auto) 0.12 K/uL Sodium Level 140 mmol/L Potassium Level 4.0 mmol/L Chloride Level 106 mmol/L Carbon Dioxide Level 24 mmol/L Anion Gap 10.0 mmol/L Blood Urea Nitrogen 12 mg/dl Creatinine 0.74 mg/dl Est Creatinine Clear Calc Drug Dose 105.5 ml/min Estimated GFR () 109.1 Estimated GFR (Non- 94.1 BUN/Creatinine Ratio 16.5 Random Glucose 80 mg/dl Calcium Level 7.8 mg/dl Assessment and Plan (1) Cellulitis (2) Hypertension (3) DVT prophylaxis 71yo male: 1. LLE cellulitis - improved/resolving. Can likely transition to PO abx in the AM. Today is day #6 of abx. 2. PAD - known. Needs outpt f/u with vascular surgery. Continue asa. Check lipids as outpatient and treat with high-dose statin therapy. 3. HTN - controlled with current meds. 4. DVT proph - heparin TID. 5. abnormal alk phos - recheck LFTs am. also check vit D as alk phos will be elevated with vit D def. 6. hypoalbuminemia - etiology? needs outpatient f/u. hopefully d/c home tomorrow Continued [facility] stay due to: multiple IV medications needed Discharge planning: home
[2016-12-27 00:22] VITALS: BP 138/82; PULSE 67; TEMP 36.7; O2SAT 97
[2016-12-27] MEDS ORDERED: VANCOMYCIN TROUGH SCH (01:30)
[2016-12-27] MEDS: HEPARIN SOD 5000 UNIT/0.5 ML CARP SQ SCH ×2 (05:58→14:43)
[2016-12-27 06:36] LABS: CREATININE 0.79 mg/dl (0.60-1.40)
[2016-12-27 07:43] VITALS: BP 126/72; PULSE 67; TEMP 36.5; O2SAT 96
[2016-12-27] MEDS: AMLODIPINE BESYLATE 5 MG TAB PO SCH (08:17)
[2016-12-27] MEDS: METOPROLOL TARTRATE 50 MG TAB PO SCH (08:17)
[2016-12-27] MEDS: AMOXICILLIN/CLAVULANATE TAB 875 MG TAB PO SCH ×2 (08:20→16:54)
[2016-12-27] MEDS: SULFAMETHOXAZOLE/TRIMETHOPRIM DS 800/160MG TAB PO SCH ×2 (08:20→16:54)
[2016-12-27] MEDS: OXYCODONE HCL IR 5 MG TAB (IMMEDIATE RELEASE) PO PRN ×2 (08:22→16:19)
[2016-12-27] MEDS: ACETAMINOPHEN 325 MG TAB PO PRN (11:48)
--- NOTE | 2016-12-27 15:13 | Surgery Consultation ---
Consultation Date of Service Dec 27, 2016. Chief Complaint PAD, claudication History of Present Illness The patient is a 71 year old male with hx of HTN, hyperlipidemia, and lumbar spinal problems, seen in consultation today for PAD with claudication. Pt currently admitted d/t cellulitis of LLE and had been scheduled to see Dr Pacheco in office this week, however, was admitted and cx his appt. Pt admits chronic BLE edema, but states his LLE was much worse, with pain and erythema, so came to ED. Admits BLE calf claudication at approx 30 yds which resolves within a few minutes. He states he is able to walk farther before stopping if he has a shopping cart to lean on. Has hx of lumbar spinal fusions x [address] Castro. Denies any back pain, numbness, or tingling of BLE. Pt states his calf claudication is disruptive to his lifestyle, which is very active. 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 Denies KELLY, fever, chills, chest pain, SOB, abd pain, N/V, rest pain, nonhealing wounds or ulcerations, other complaints. Vitals Vital Signs Past 12 Hours Date Time Temp Pulse Resp B/P Pulse Ox O2 Delivery O2 Flow Rate FiO2 12/27/16 08:00 Room Air 12/27/16 07:43 36.5 67 16 126/72 96 Room Air Allergies Coded Allergies: Atorvastatin (Unverified Allergy, Unknown, unknown, 12/30/15) Per PCP note Enalapril (Unverified Allergy, Unknown, unknown, 12/30/15) Per PCP note Lovastatin (Unverified Allergy, Unknown, unknown, 12/30/15) Per PCP note Pravastatin (Unverified Allergy, Unknown, unknown, 12/30/15) Per PCP note Simvastatin (Unverified Allergy, Unknown, unknown, 12/30/15) Per PCP note Home Medications Scheduled Amlodipine (Norvasc), 5 MG PO QPM Aspirin (Aspir-81), 81 MG PO QPM Metoprolol Tartrate (Lopressor), 50 MG PO BID Ranitidine (Zantac), 150 MG PO HS Problem List Medical Problems: (1) Cellulitis (2) Chronic cholecystitis (3) DVT prophylaxis (4) Hypertension Surgical / Medical History Hx Cardiac Surgery: Yes Hx Abdominal Surgery: Yes Hx Cancer Surgery: No Hx Thoracic Surgery: Yes Hx Orthopedic: Yes Hx Urinary Tract Surgery: No HX Other Surgery: No Past Medical/Surgical History: High Cholesterol, Hypertension Family History + HTN Social History Smoking Status: Former Smoker Hx Tobacco Use In Past Year?: No Hx Alcohol Use - Type & Amnt: Yes (Beer (unspecified)) Hx Substance Use -Type & Amnt: No Review of Systems Constitutional: No chills, No fever, No malaise Skin: + change in color Eyes: No visual changes ENMT: No sore throat Respiratory: No MUNOZ, No cough, No hemoptysis, No short of breath Cardiovascular: + edema, + intermittent claudication, No chest pain, No palpitations, No syncope Gastrointestinal: No abdominal pain, No nausea, No vomiting Musculoskeletal: No back pain Neurologic: No dizziness, No headache, No numbness, No weakness Physical Exam Constitutional: General Apperance: heathly-appearing, well-nourished, well-developed Level of Distress: NAD Ambulation: ambulating normally Psychiatric: Mental Status: active & alert, normal mood, normal affect Orientation: oriented except where noted, to time, to place, to person Memory: recent memory normal, remote memory normal Head: normocephalic, atraumatic Eyes: EOM: EOMI ENMT: normal ENT inspection, hearing grossly normal Neck: supple, trachea midline Lungs: Respiratory effort: no dyspnea Auscultation: breath sounds normal, no wheezing, no rales/crackles Cardiovascular: Apical Impulse: not displaced Heart Auscultation: RRR, no rubs, no gallops Peripheral Pulses: Pulses: full and equal, in all extremities except if noted Bruits: none appreciated Carotid Pulse: normal on the left, normal on the right Brachial Pulses: normal on the left, normal on the right Radial Pulse: normal on the left, normal on the right Ulnar Pulse: normal on the left, normal on the right Femoral Pulse: normal on the left, normal on the right Posterior Tibialis Pulse: decreased on the left, decreased on the right, doppler (Biphasic LLE, triphasic RLE) Dorsalis Pedis Pulse: decreased on the left, decreased on the right, doppler (biphasic LLE, triphasic RLE) Abdomen: Bowel Sounds: normal Inspection & Palpation: soft, non-distended, no tenderness, guarding & rebound Musculoskeletal: normal strength (5/5 throughout), normal tone Extremities: Upper Right: no cyanosis, no edema, no varicosities Upper Left: no cyanosis, no edema, no varicosities Lower Right: no cyanosis, no varicosities, edema Lower Left: no cyanosis, no varicosities, no palpable cord, edema, pertinent finding (erythema, warmth to anterior LLE) Neurologic: Cranial Nerves: grossly intact Sensation: grossly intact Assessment and Plan ASSESSMENT and PLAN: mild PAD popliteal aneurysm Claudication Pt discussed with Dr Pacheco, who also reviewed pt's US and CTA, does not recommend any vascular surgical intervention at this time. Pt has sx of BLE claudication, however, imaging and exam demonstrate only mild disease. Pt's sx more consistent with neurogenic claudication. D/T hx of multiple lumbar spinal surgeries, advised pt to discuss his sx with his spine surgeon. Will see in office in 1 year to reevaluate popliteal art aneurysm. Pt agreeable. Please call if needed.
[2016-12-27 15:20] VITALS: BP 157/81; PULSE 75; TEMP 36.5; O2SAT 98
[2016-12-27] MEDS ORDERED: AMOX1TAB43 PO (16:42)
[2016-12-27] MEDS ORDERED: AMLO-114 PO (16:42)
[2016-12-27] MEDS ORDERED: SULF-183 PO (16:42)
[2016-12-27] MEDS ORDERED: RXC5 PO (16:42)
--- NOTE | 2016-12-27 16:54 | Discharge Instructions ---
Discharge Instructions Date of Service Dec 27, 2016. Admission Reason for Admission: Cellulitis Discharge Discharge Diagnosis / Problem: skin infection (cellulitis) of left leg Discharge Goals Goal(s): Learn about illness, Diagnostic testing, Therapeutic intervention Activity Recommendations Activity Limitations: resume your previous activity (as tolerated) . Instructions / Follow-Up Instructions / Follow-Up From Dr. Bautista - 1. left leg cellulitis/infection - * please take 2 antibiotics for 7 days each; each antibiotic is twice a day * ok to prop up the leg on a pillow or two when relaxing at home to help with swelling but do not prop the leg while sleeping at night * do not drink alcohol while on antibiotics * start the antibiotics TOMORROW on 12/28/16 2. for pain - * may take oxycodone 5mg every 4 hours as needed for pain * do NOT drive or drink alcohol while taking pain pills * the pain medication can cause constipation and sedation 3. for vitamin D deficiency - * take ergocalciferol 50871 unit capsule twice a week for 8 weeks * have your family doctor recheck your vitamin D level in about 2 months to ensure it has normalized * your vitamin D level was 11 (normal is 30 and up) 4. abnormal liver function tests - * I am concerned that you may have some form of chronic liver disease * please stop all alcohol consumption if at all possible * at the very least you are going to need repeat liver function tests and possible a liver ultrasound - your family doctor can arrange this 5. vascular disease of the legs - * continue your aspirin once a day * see Dr. Pacheco in 1 year 6. leg pains - * Dr. Pacheco's team feels the leg pain may be from your back / spine * please follow-up with your back doctor at your convenience to discuss this possibility 7. high blood pressure - * your norvasc (amlodipine) dose has been increased to 10mg once daily * new prescription given; start this tomorrow on 12/28/16 8. Please see your family doctor as scheduled to have the leg looked at again and to ensure full resolution. 9. See your family doctor right away or return to any emergency department with any fever over 100.5 degrees, worsening redness or pain of the left leg, etc. Current Hospital Diet Patient's current hospital diet: AHA Diet (Heart Healthy) Discharge Diet Recommended Diet: AHA Diet (Heart Healthy) Procedures Procedures Performed: arterial doppler study of legs showing peripheral arterial disease. venous doppler study of left leg without evidence for blood clot/DVT. Pending Studies Studies pending at discharge: no Medical Emergencies . Who to Call and When: Medical Emergencies: If at any time you feel your situation is an emergency, please call 911 immediately. . Non-Emergent Contact Non-Emergency issues call your: Primary Care Provider Call Non-Emergent contact if: temperature is above 100.5, your pain is not controlled, your pain is worsening, your pain is unusual for you, your pain is concerning you, you have any medication questions . . "Provider Documentation" section prepared by Iván Bautista. VTE Core Measure Inpt VTE Proph given/why not?: Unfractionated heparin SQ
[2016-12-27] MEDS ORDERED: VTMD PO (16:55)
[2016-12-27 17:17] VITALS: BP 157/81; PULSE 75; TEMP 36.5; O2SAT 98
--- NOTE | 2017-01-04 21:32 | Discharge Summary ---
Discharge Summary Date of Service Jan 04, 2017. Discharge Summary Admission Date: Dec 21, 2016 at 18:18 Discharge Date: Dec 27, 2016 Discharge Disposition: Home Principal Diagnosis: cellulitis, LLE Problems/Secondary Diagnoses: 1. HTN 2. vitamin D deficiency 3. abnormal alkaline phosphatase 4. hypoalbuminemia 5. concern of liver disease - to be determined 6. peripheral arterial disease Procedures: 1. arterial doppler, left leg - FINDINGS: There is advanced atherosclerotic plaque and irregularity seen throughout the arteries of the left lower extremity. The common femoral artery is patent and demonstrates biphasic waveforms. Velocities in the left common femoral artery measure up to 159 cm/s. The left profunda femoris artery is patent with velocities measuring up to 139 cm/s. There are elevated velocities within the proximal left superficial femoral artery measure up to 277 cm/s. Biphasic waveforms are noted. Velocities in the midportion of the superficial femoral artery measure up to 209 cm/s, and mildly elevated velocities are seen within the distal left superficial femoral artery measuring up to 240 cm/s. There is slight blunting of the arterial upstroke within monophasic to biphasic waveforms in the left popliteal artery and the calf vessels. Velocities in the left popliteal artery measure up to 94 cm/s. There is three-vessel runoff to the left foot. Velocities within the left anterior tibial artery measure 74 cm/s, velocities in the left peroneal artery measure up to 47 cm/s, and velocities in the left posterior tibial artery measure up to 65 cm/s. The left dorsalis pedis artery is patent with velocities measuring up to 69 cm/s. IMPRESSION: 1. Peripheral vascular disease in the left lower extremity as above. No focal vessel cut off is identified in the left lower extremity. 2. There are several foci of increased velocity noted within the left superficial femoral artery consistent with stenoses. This was better characterized on a 10/12/2016 CT angiogram of the left lower extremity. 2. venous doppler, left leg - NO DVT Consultations: vascular surgery - CHRISTAL Nolasco / John Pacheco MD Medication Reconciliation New Medications: Ergocalciferol (Vitamin D) 50,000 Interunit Cap 87731 UNITS PO TWICE A WEEK, #8 CAP 1 Refill Amoxicillin & Pot Clavulanate (Amoxicillin/Clavulanate P) 1 Tab Tab 875 MG PO BIDM for 7 Days, #14 TAB 0 Refills Oxycodone HCl (Oxycodone HCl) 5 Mg Tab 5 MG PO Q4 PRN for Pain, #15 TAB 0 Refills Sulfamethoxazole-Trimethoprim (Smz-Tmp Ds) 1 Tab Tab 1 TAB PO Q12 for 7 Days, #14 TAB 0 Refills Changed Medications: Amlodipine (Norvasc) 10 Mg Tab 10 MG PO DAILY for 30 Days, #30 TAB 2 Refills (Changed from: Amlodipine (Norvasc ) 5 Mg Tab 5 Mg PO QPM) Continued Medications: Aspirin (Aspir-81) 81 Mg Tab 81 MG PO QPM Metoprolol Tartrate (Lopressor) 50 Mg Tab 50 MG PO BID, TAB Ranitidine (Zantac) 150 Mg Tab 150 MG PO HS, TAB Discharge Exam Physical Exam: General Appearance: no apparent distress ENT: pharynx normal Neck: no JVD Respiratory/Chest: lungs clear, no respiratory distress, no accessory muscle use Cardiovascular: regular rate, rhythm, no gallop, no murmur, normal peripheral pulses Abdomen / GI: normal bowel sounds, non tender, soft, no organomegaly Extremities: + pedal edema (left foot/ankle; ?lymphedema), + swelling ( edema extending from the left ankle up to the left knee region) Neurologic/Psychiatric: alert, oriented x 3 Skin: + pertinent finding (resolving cellulitis/erythema of LLE; most of the erythema extended from just below the left knee down to about the level of the ankle ) Hospital Course (1) Cellulitis (2) Hypertension (3) DVT prophylaxis HISTORY OF PRESENT ILLNESS: Pt is a 71yo male who presents to the ER with complaints of worsening left leg pain, swelling and redness which started 5 days ago. Pt reports first going to [facility] where he was put on PO antibiotics but noticed worsening spread of infection from foot to thigh. Pt was told by PCP to go to [facility]. Pt reports "they kept changing antibiotics" and the infection wasn't getting any better. He left [facility] and came to [facility] ED for continuation of treatment. He denies any fevers or chills but states pain is too great to even walk. Pt denies any trauma, bites to leg. He has had cellulitis before in the legs, but it has never been this severe. Pt denies LOC, headache, fevers, chills, diaphoresis, visual changes, neck pain, chest pain, breathing difficulties, nausea, vomiting, abdominal pain, back pain, melena, hematochezia, urinary symptoms, numbness, weakness, lymphadenopathy, or other complaints. HOSPITAL COURSE: The patient's LLE cellulitis was treated with IV antibiotic therapy and gradually improved over his 6-day stay. Blood cultures remained negative while here. Venous doppler study of the left leg was negative for DVT. Arterial doppler study showed mild PAD but the left leg has sufficient blood flow for adequate healing. He was seen formally by vascular surgery due to his chronic complaints of leg claudication and the arterial doppler findings. Vascular surgery felt that many of his symptoms could be neurogenic in origin from lumbar spine disease. Vascular surgery recommended follow-up with a back specialist after discharge. He will complete a 7-day course of both augmentin and bactrim after discharge. Other problems addressed included the following - 1. vitamin D deficiency - he will take an 8-week course of ergocalciferol 41168 Units. Repeat vitamin D level is recommended following the completion. Vitamin D level was 11. 2. hypoalbuminemia and elevated alkaline phosphatase - Mr. Parry admits to regular alcohol use. He needs a dedicated liver ultrasound to exclude developing liver disease/ cirrhosis. He may need other blood work to rule out chronic liver disease as well. He was counseled about the abnormal liver tests. Alcohol moderation or abstinence was stressed. 12/26/16 06:20 Red Blood Count 4.02, Mean Corpuscular Volume 89.6, Mean Corpuscular Hemoglobin 30.3, Mean Corpuscular Hemoglobin Concent 33.9, Mean Platelet Volume 9.6, Neutrophils (%) (Auto) 63.3, Lymphocytes (%) (Auto) 20.0, Monocytes (%) (Auto) 10.3, Eosinophils (%) (Auto) 4.7, Basophils (%) (Auto) 0.4, Neutrophils # (Auto ) 5.64, Lymphocytes # (Auto) 1.79, Monocytes # (Auto) 0.92, Eosinophils # (Auto ) 0.42, Basophils # (Auto) 0.04 12/26/16 06:20 12/27/16 05:32 Test 12/21/16 14:30 12/23/16 05:20 12/25/16 01:35 12/26/16 06:20 Erythrocyte Sedimentation Rate > 90 mm/hr (0-14) Prothrombin Time 11.2 SECONDS (9.0-12.0) Prothromb Time International Ratio 1.0 (0.9-1.1) Activated Partial Thromboplast Time 33.7 SECONDS (21.0-31.0) Partial Thromboplastin Ratio 1.3 C-Reactive Protein 21.50 mg/dl (0-0.29) Globulin 4.9 gm/dl (2.5-4.0) Albumin/Globulin Ratio 0.5 (0.9-2) Neutrophils % (Manual) 69.6 % Lymphocytes % (Manual) 20.0 % Monocytes % (Manual) 7.8 % Eosinophils % (Manual) 1.7 % Metamyelocytes % 0.9 % Neutrophils # (Manual) 7.43 K/uL (1.4-6.5) Total Absolute Neutrophils 7.43 K/uL (1.4-6.5) Lymphocytes # (Manual) 2.14 K/uL (1.2-3.4) Total Absolute Lymphocytes 2.14 K/uL (1.2-3.4) Monocytes # (Manual) 0.83 K/uL (0.11-0.59) Eosinophils # (Manual) 0.18 K/uL (0-0.5) Metamyelocytes # 0.10 K/uL (0-0) Vancomycin Level Trough 13.0 mcg/ml (SEE COMMENT) White Blood Count 8.93 K/uL (4.8-10.8) Red Blood Count 4.02 M/uL (4.7-6.1) Hemoglobin 12.2 g/dL (14.0-18.0) Hematocrit 36.0 % (42-52) Mean Corpuscular Volume 89.6 fL (80-100) Mean Corpuscular Hemoglobin 30.3 pg (25-34) Mean Corpuscular Hemoglobin Concent 33.9 g/dl (32-36) Platelet Count 413 K/uL (130-400) Mean Platelet Volume 9.6 fL (7.4-10.4) Neutrophils (%) (Auto) 63.3 % Lymphocytes (%) (Auto) 20.0 % Monocytes (%) (Auto) 10.3 % Eosinophils (%) (Auto) 4.7 % Basophils (%) (Auto) 0.4 % Neutrophils # (Auto) 5.64 K/uL (1.4-6.5) Lymphocytes # (Auto) 1.79 K/uL (1.2-3.4) Monocytes # (Auto) 0.92 K/uL (0.11-0.59) Eosinophils # (Auto) 0.42 K/uL (0-0.5) Basophils # (Auto) 0.04 K/uL (0-0.2) RDW Standard Deviation 48.5 fL (36.4-46.3) RDW Coefficient of Variation 14.8 % (11.5-14.5) Immature Granulocyte % (Auto) 1.3 % Immature Granulocyte # (Auto) 0.12 K/uL (0.00-0.02) Anion Gap 10.0 mmol/L (3-11) BUN/Creatinine Ratio 16.5 (10-20) Calcium Level 7.8 mg/dl (8.5-10.1) Test 12/27/16 05:32 Est Creatinine Clear Calc Drug Dose 98.8 ml/min Estimated GFR () 106.2 Estimated GFR (Non- 91.6 Total Bilirubin 0.6 mg/dl (0.2-1) Direct Bilirubin 0.2 mg/dl (0-0.2) Aspartate Amino Transf (AST/SGOT) 29 U/L (15-37) Alanine Aminotransferase (ALT/SGPT) 36 U/L (12-78) Alkaline Phosphatase 371 U/L (45-117) Total Protein 6.8 gm/dl (6.4-8.2) Albumin 2.2 gm/dl (3.4-5.0) 25-Hydroxy Vitamin D Total 11.1 ng/ml (30-100) Date/Time Source Procedure Growth Status 12/21/16 15:10 Blood Blood Culture - Final NO GROWTH Complete Total Time Spent: Greater than 30 minutes This includes examination of the patient, discharge planning, medication reconciliation, and communication with other providers. Discharge Instructions Please refer to the electronic Patient Visit Report (Discharge Instructions) for additional information. Follow-Up 1. see PCP, Dr. Urvashi Fuller, within 3-[address] John Pacheco, [facility] surgery, in 1 year Additional Copies To Pinky Rogers, JOI; Urvashi Fuller D.O.; John Pacheco M.D.
[2017-01-16] MEDS ORDERED: LVQ750 PO (09:27)
[2017-01-16] MEDS ORDERED: OXYC2.5T4 PO (09:27)
== END 2016-12-27 19:05 | disposition home or self-care (01) | DRG 603 ==
LOC: ENRESERVTM → ENRESERVDT → C.EDB 13:54 → C.4E 18:18
PROVIDERS: ADMIT Hospitalist; ATTEND Internal Medicine
DX: L03.116 Cellulitis of left lower limb (principal); I25.10 Atherosclerotic heart disease of native coronary artery without angina pectoris; Z95.1 Presence of aortocoronary bypass graft; I10 Essential (primary) hypertension; I73.9 Peripheral vascular disease, unspecified; Z87.891 Personal history of nicotine dependence; E78.00 Pure hypercholesterolemia, unspecified; Z82.49 Family history of ischemic heart disease and other diseases of the circulatory system

== ENCOUNTER 2017-01-12 14:00 | Inpatient (IN) | payer OTHER ==
[~2017-01-12] VITALS: Ht 170.2 cm; Wt 96.0 kg
[~2017-01-12 14:00] MED LIST changes: -AMLO-110 PO; +AMLO-114 PO; +AMOX1TAB43 PO; +RXC5 PO; +SULF-183 PO; +VTMD PO
[2017-01-12] MEDS ORDERED: VANCOMYCIN 1GM/270ML NSS IV STA (17:04)
[2017-01-12] MEDS ORDERED: AMLO-114 PO (17:18)
[2017-01-12] MEDS ORDERED: ACET-1311 PO (17:18)
[2017-01-12] MEDS ORDERED: ERGO500037 PO (17:18)
[2017-01-12 17:45] LABS: BASO % 0.5 %; BASO ABS # 0.05 K/uL (0-0.2); COMPLETE YES; EOS % 3.9 %; HEMATOCRIT 43.9 % (42-52); IG% 0.4 %; LYMPH % 19.3 %; LYMPH ABS # 1.94 K/uL (1.2-3.4); MEAN CELL VOLUME 89.6 fL (80-100); MEAN CORPUSCULAR HGB CONC 34.6 g/dl (32-36); MEAN PLATELET VOLUME 10.7 fL (7.4-10.4); MONO % 9.5 %; NEUT % 66.4 %; PLATELET COUNT 402 K/uL (130-400); WHITE BLOOD COUNT 10.04 K/uL (4.8-10.8)
[2017-01-12] MEDS ORDERED: ZOLPIDEM TARTRATE 5 MG TAB PO PRN (18:45)
[2017-01-12] MEDS ORDERED: ACETAMINOPHEN 325 MG TAB PO PRN ×2 (18:45→19:00)
[2017-01-12] MEDS ORDERED: ONDANSETRON INJ 2 MG/ML 2 ML VIAL IV PRN (19:00)
[2017-01-12 19:32] LABS: BUN/CREATININE RATIO 15.9 (10-20); CALCIUM 8.6 mg/dl (8.5-10.1); CREATININE 0.65 mg/dl (0.60-1.40); POTASSIUM 3.7 mmol/L (3.5-5.1)
--- NOTE | 2017-01-12 19:41 | DIAGNOSTIC IMAGING REPORT ---
LEFT TIBIA AND FIBULA 2 VIEWS CLINICAL HISTORY: Left leg infection. FINDINGS: AP and lateral portable views of the left tibia and fibula are obtained. No prior studies are available for comparison at the time of dictation. The skeletal structures are osteopenic. No fracture is seen. No bony erosion or periostitis is identified. The knee and ankle joints are grossly maintained. There is atherosclerotic calcification of the regional arteries. Soft tissue edema is seen throughout the left lower extremity. IMPRESSION: Soft tissue edema with no acute bony abnormality identified in the left tibia or fibula. Electronically signed by: Ramses Bermudez M.D. 01/12/2017 7:39 PM Dictated Date/Time: 01/12/2017 7:38 PM
--- NOTE | 2017-01-12 19:56 | EMERGENCY ROOM VISIT NOTE ---
History Report prepared by Lida: Abner Hatch Under the Supervision of: Dr. Barry Sims M.D. First contact with patient: 16:54 Chief Complaint: INFECTION Stated Complaint: BAD LEFT LEG INFECTION Nursing Triage Summary: Pt reports recently being admitted to hospital for cellulitis of LLE. Pt saw PCP today, increased redness and swelling in LLE and sent to ER History of Present Illness The patient is a 71 year old male who presents to the Emergency Room with complaints of worsening left leg cellulitis that started last night. The patient saw his primary care physician today and was told to come here to be admitted. He was admitted here at the end of November for cellulitis of the same extremity, and was put on Augmentin and Bactrim. He finished the antibiotics earlier this month. The patient says his leg was getting better, but the redness and swelling worsened last night. He denies any fevers, vomiting, chest pain, or shortness of breath. Source of History: patient Onset: Last night Position: leg (left) Quality: other (cellulitis - reddening and swelling) Timing: worsening Associated Symptoms: No SOB, No chest pain, No fevers, No vomiting Review of Systems See HPI for pertinent positives & negatives. A total of 10 systems reviewed and were otherwise negative. Past Medical & Surgical Medical Problems: (1) Cellulitis (2) Cellulitis of left lower extremity (3) Chronic cholecystitis (4) DVT prophylaxis (5) Hypertension Family History No pertinent family history Social History Smoking Status: Former Smoker Marital Status: Housing Status: lives with family Occupation Status: retired Current/Historical Medications Scheduled Amlodipine (Norvasc), 10 MG PO QAM Aspirin (Aspir-81), 81 MG PO QPM Ergocalciferol (Vitamin D 11641 Unit), 50,000 UNIT PO 2XWK Metoprolol Tartrate (Lopressor), 50 MG PO BID Ranitidine (Zantac), 150 MG PO HS Scheduled PRN Acetaminophen (Tylenol), 650 MG PO DIRECTED PRN for Pain Allergies Coded Allergies: Atorvastatin (Verified Allergy, Unknown, unknown, 01/12/17) Per PCP note Enalapril (Verified Allergy, Unknown, unknown, 01/12/17) Per PCP note Lovastatin (Verified Allergy, Unknown, unknown, 01/12/17) Per PCP note Pravastatin (Verified Allergy, Unknown, unknown, 01/12/17) Per PCP note Simvastatin (Verified Allergy, Unknown, unknown, 01/12/17) Per PCP note Physical Exam Vital Signs Date Time Temp Pulse Resp B/P Pulse Ox O2 Delivery O2 Flow Rate FiO2 01/12/17 18:00 85 18 175/92 99 Room Air 01/12/17 17:02 84 01/12/17 16:48 86 19 167/74 98 Room Air 01/12/17 14:05 36.4 20 164/91 Room Air Physical Exam Constitutional: Vital signs reviewed. Eyes: Pupils are equal round reactive to light. Conjunctiva are noninjected. ENT: Pharynx is clear without erythema or exudate. Mucous membranes are moist. Neck supple without meningeal signs. Respiratory: Clear to auscultation bilaterally. Breath sounds are equal bilaterally. Cardiovascular: Regular rate and rhythm. No rubs or gallops. GI: Soft, nondistended and nontender. Bowel sounds are present. Musculoskeletal: Diffuse erythema to left lower leg below knee extending into foot with increased warmth and moderate edema. Distal capillary refill less than 2 seconds. Integumentary: As above. Neurological: The patient is awake and alert. No focal deficits. Psychiatric: Normal affect. Medical Decision & Procedures Laboratory Results 01/12/17 17:30 Red Blood Count 4.90, Mean Corpuscular Volume 89.6, Mean Corpuscular Hemoglobin 31.0, Mean Corpuscular Hemoglobin Concent 34.6, Mean Platelet Volume 10.7, Neutrophils (%) (Auto) 66.4, Lymphocytes (%) (Auto) 19.3, Monocytes (%) (Auto) 9.5, Eosinophils (%) (Auto) 3.9, Basophils (%) (Auto) 0.5, Neutrophils # (Auto) 6.67, Lymphocytes # (Auto) 1.94, Monocytes # (Auto) 0.95, Eosinophils # (Auto) 0.39, Basophils # (Auto) 0.05 Test 01/12/17 17:30 White Blood Count 10.04 K/uL (4.8-10.8) Red Blood Count 4.90 M/uL (4.7-6.1) Hemoglobin 15.2 g/dL (14.0-18.0) Hematocrit 43.9 % (42-52) Mean Corpuscular Volume 89.6 fL (80-100) Mean Corpuscular Hemoglobin 31.0 pg (25-34) Mean Corpuscular Hemoglobin Concent 34.6 g/dl (32-36) Platelet Count 402 K/uL (130-400) Mean Platelet Volume 10.7 fL (7.4-10.4) Neutrophils (%) (Auto) 66.4 % Lymphocytes (%) (Auto) 19.3 % Monocytes (%) (Auto) 9.5 % Eosinophils (%) (Auto) 3.9 % Basophils (%) (Auto) 0.5 % Neutrophils # (Auto) 6.67 K/uL (1.4-6.5) Lymphocytes # (Auto) 1.94 K/uL (1.2-3.4) Monocytes # (Auto) 0.95 K/uL (0.11-0.59) Eosinophils # (Auto) 0.39 K/uL (0-0.5) Basophils # (Auto) 0.05 K/uL (0-0.2) RDW Standard Deviation 47.0 fL (36.4-46.3) RDW Coefficient of Variation 14.4 % (11.5-14.5) Immature Granulocyte % (Auto) 0.4 % Immature Granulocyte # (Auto) 0.04 K/uL (0.00-0.02) Laboratory results as reviewed by me. Medications Administered Medications (Trade) Dose Ordered Sig/Todd Route Start Time Stop Time Status Last Admin Dose Admin Vancomycin HCl (Vancomycin 1gm/ 270ml Nss) 1 gm NOW STAT IV 01/12/17 17:04 01/12/17 17:05 DC 01/12/17 17:04 1 GM ED Course 1659: The patient was evaluated in room A10. A complete history and physical exam was performed. 1703: Ordered Vancomycin 1 gm/270 ml Nss 1 gm IV. 1821: I reevaluated the patient and he is resting comfortably. We are redrawing the PRP. The patient verbally expressed understanding and agreement of the treatment plan. The patient will be evaluated for further treatment. 1822: I discussed the patient with Dr. Blount - [facility] [place] hospitalist - he will evaluate the patient for further treatment. Medical Decision this is a 71-year-old male presents with cellulitis to his left leg.I did perform a limited focused review of portions of the patient's old chart on the electronic medical record. The patient was here for left lower extremity cellulitis on December 21, and had an arterial Doppler of the left leg which showed peripheral vascular disease without focal vessel cutoff. A venous Doppler showed no DVT. He was discharged home on Bactrim and Augmentin. I did evaluate the patient as noted above. The patient was sent here for admission by his primary care physician. He has worsening cellulitis to his left leg. IV access was established. I did order and review the patient's blood work as noted in the electronic medical record. I did order blood cultures. I did treat the patient with vancomycin IV. 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 Consults Time Called: 1820 Consulting Physician: Dr. Jose Alejandro WALTERS hospitalist Returned Call: 1822 I discussed the patient with Dr. Jose Alejandro WALTERS hospitalist - he will evaluate the patient for further treatment. Impression Primary Impression: Left leg cellulitis Scribe Attestation The scribe's documentation has been prepared under my direct and personally reviewed by me in its entirety. I confirm that the note above accurately reflects all work, treatment, procedures, and medical decision making performed by me. Departure Information Dispostion Being Evaluated By Hospitalist Referrals Urvashi Fuller D.O. (PCP) Patient Instructions My [facility]
[2017-01-12] MEDS ORDERED: VANCOMYCIN INJ 1,400 MG in SODIUM CHLORIDE 0.9% 500ML 500 ML IV STA (20:06)
[2017-01-12] MEDS ORDERED: VANCOMYCIN CONSULT ACTIVE PRN (20:15)
[2017-01-12 20:18] VITALS: BP 154/76; PULSE 86; TEMP 36.5; Ht 170.2 cm; Wt 96.0 kg
[2017-01-12 20:21] VITALS: O2SAT 98
--- NOTE | 2017-01-12 20:51 | History and Physical ---
History & Physical Date & Time of Service: Jan 12, 2017 at 20:50 Chief Complaint: Cellulitis Of Left Lower Extremity Primary Care Physician: Urvashi Fuller D.O. History of Present Illness Source: patient The patient is a 71-year-old male, status post [facility] hospitalization from December 21 to December 27 for left lower extremity cellulitis, who presents to the emergency department after being referred by his PCP for return of symptoms. The patient reports that he completed the one week of antibiotics upon discharge as instructed, but that his symptoms never completely resolved, and then when he was seen by his PCP for return of symptoms last evening, he was advised as above. He reports that the left leg is more painful this time than last time. He denies any chest pain or shortness of breath. Past Medical/Surgical History Medical Problems: (1) Cellulitis Status: Resolved (2) Hypertension Status: Chronic Family History No pertinent family history Social History Smoking Status: Former Smoker Smokeless Tobacco Use: No Alcohol Use: none Drug Use: none Marital Status: Housing status: lives with family Occupational Status: retired Multi-Drug Resistant Organisms History of MDRO: No Allergies Coded Allergies: Atorvastatin (Verified Allergy, Unknown, unknown, 01/12/17) Per PCP note Enalapril (Verified Allergy, Unknown, unknown, 01/12/17) Per PCP note Lovastatin (Verified Allergy, Unknown, unknown, 01/12/17) Per PCP note Pravastatin (Verified Allergy, Unknown, unknown, 01/12/17) Per PCP note Simvastatin (Verified Allergy, Unknown, unknown, 01/12/17) Per PCP note Home Medications Scheduled Amlodipine (Norvasc), 10 MG PO QAM Aspirin (Aspir-81), 81 MG PO QPM Ergocalciferol (Vitamin D 29950 Unit), 50,000 UNIT PO 2XWK Metoprolol Tartrate (Lopressor), 50 MG PO BID Ranitidine (Zantac), 150 MG PO HS Scheduled PRN Acetaminophen (Tylenol), 650 MG PO DIRECTED PRN for Pain Review of Systems The patient denies chest pain, palpitations, shortness of breath, cough, vision change, hearing change, sore throat, fevers, chills, sweats, weight change, fatigue, nausea, vomiting, abdominal pain, pelvic pain, blood in urine or stool, dysuria, urinary frequency or urgency, lightheadedness, dizziness, headache, memory loss, rash, abnormal bruising or bleeding, generalized weakness , numbness or tingling in arms, back or neck pain, night sweats, or allergy symptoms. The review of systems is otherwise negative other than for that already noted above, and at least 10 systems have been reviewed. Physical Exam Vital Signs Date Time Temp Pulse Resp B/P Pulse Ox O2 Delivery O2 Flow Rate FiO2 01/12/17 20:21 98 Room Air 01/12/17 20:18 36.5 86 16 154/76 01/12/17 19:33 88 16 171/93 98 Room Air 01/12/17 18:00 85 18 175/92 99 Room Air 01/12/17 17:02 84 01/12/17 16:48 86 19 167/74 98 Room Air 01/12/17 14:05 36.4 20 164/91 Room Air The patient is awake, well-developed and adequately nourished, alert and oriented 3, normocephalic and atraumatic, lying in bed and in no acute distress. HEENT--PERRL, EOMI, mucous membranes and oropharynx normal. Neck--supple, no JVD or bruits, thyroid normal, trachea midline, no adenopathy. Heart--normal S1 and S2, no extra beats, no murmurs, rubs or gallops. Lungs--clear bilaterally with good air movement, no respiratory distress, no accessory muscle use. Abdomen--normal bowel sounds and soft, nontender and nondistended, no hernias or masses, no organomegaly. Extremities--right lower extremity with no cyanosis, clubbing or edema. There are good distal pulses b/l. Left lower extremity with erythema induration and warmth on pretibial surface. Dermatologic--as above. Neurologic--cranial nerves II through XII grossly intact, motor and sensory examination normal. Rheumatologic--full range of motion. Psychiatric--normal affect. Diagnostics Laboratory Results Results Past 24 Hours Test 01/12/17 17:30 01/12/17 18:57 Range/Units White Blood Count 10.04 4.8-10.8 K/uL Red Blood Count 4.90 4.7-6.1 M/uL Hemoglobin 15.2 14.0-18.0 g/dL Hematocrit 43.9 42-52 % Mean Corpuscular Volume 89.6 80-100 fL Mean Corpuscular Hemoglobin 31.0 25-34 pg Mean Corpuscular Hemoglobin Concent 34.6 32-36 g/dl Platelet Count 402 130-400 K/uL Mean Platelet Volume 10.7 7.4-10.4 fL Neutrophils (%) (Auto) 66.4 % Lymphocytes (%) (Auto) 19.3 % Monocytes (%) (Auto) 9.5 % Eosinophils (%) (Auto) 3.9 % Basophils (%) (Auto) 0.5 % Neutrophils # (Auto) 6.67 1.4-6.5 K/uL Lymphocytes # (Auto) 1.94 1.2-3.4 K/uL Monocytes # (Auto) 0.95 0.11-0.59 K/uL Eosinophils # (Auto) 0.39 0-0.5 K/uL Basophils # (Auto) 0.05 0-0.2 K/uL RDW Standard Deviation 47.0 36.4-46.3 fL RDW Coefficient of Variation 14.4 11.5-14.5 % Immature Granulocyte % (Auto) 0.4 % Immature Granulocyte # (Auto) 0.04 0.00-0.02 K/uL Sodium Level 143 136-145 mmol/L Potassium Level 3.7 3.5-5.1 mmol/L Chloride Level 107 98-107 mmol/L Carbon Dioxide Level 27 21-32 mmol/L Anion Gap 9.0 3-11 mmol/L Blood Urea Nitrogen 10 7-18 mg/dl Creatinine 0.65 0.60-1.40 mg/dl Est Creatinine Clear Calc Drug Dose 118.4 ml/min Estimated GFR () 115.1 Estimated GFR (Non- 99.3 BUN/Creatinine Ratio 15.9 10-20 Random Glucose 80 70-99 mg/dl Calcium Level 8.6 8.5-10.1 mg/dl Microbiology Results 01/12/17 Blood Culture, Received Pending 01/12/17 Blood Culture, Received Pending Diagnostic Radiology Patient Name: IVON PADRON Unit Number: [id number] Dictated: 01/12/171937 Transcribed: 01/12/171937 EV Printed Date/Time: [~ rep prt dt]/[~ rep prt tm] [~ rep ct labl] - [~ rep ct ivnm] [facility] [place] [address] Dictated: 01/12/171937 Transcribed: 01/12/171937 EV Printed Date/Time: [~ rep prt dt]/[~ rep prt tm] [~ rep ct labl] - [~ rep ct ivnm] LEFT TIBIA AND FIBULA 2 VIEWS CLINICAL HISTORY: Left leg infection. FINDINGS: AP and lateral portable views of the left tibia and fibula are obtained. No prior studies are available for comparison at the time of dictation. The skeletal structures are osteopenic. No fracture is seen. No bony erosion or periostitis is identified. The knee and ankle joints are grossly maintained. There is atherosclerotic calcification of the regional arteries. Soft tissue edema is seen throughout the left lower extremity. IMPRESSION: Soft tissue edema with no acute bony abnormality identified in the left tibia or fibula. Electronically signed by: Ramses Bermudez M.D. 01/12/2017 7:39 PM Dictated Date/Time: 01/12/2017 7:38 PM The status of this report is Signed. Draft = Not yet reviewed or approved by Radiologist. Signed = Reviewed and approved by Radiologist. <AttendingPhy></AttendingPhy> <FamilyPhy>Urvashi Fuller D.O.</FamilyPhy> < PrimaryPhy>Urvashi Fuller D.O.</PrimaryPhy> <UnitNumber>[id number]</UnitNumber> <VisitNumber>[id number]</VisitNumber> <PatientName>IVON PADRON</PatientName> <DateOfBirth>1945</DateOfBirth> <Location>[facility]</Location> <ServiceDate></ServiceDate> <MNE>ESINDI</MNE> <OrderingPhy>Sandeep Blount M.D.</ OrderingPhy> <OrderingPhyMNE>f rep ord dr pritchett</OrderingPhyMNE> <DictatingPhyMNE> f rep dict dr pritchett</DictatingPhyMNE> <CCListMNE>f rep ct mne</CCListMNE> < AdmittingPhyMNE>f pt admit dr pritchett</AdmittingPhyMNE> <AttendingPhyMNE>f pt attend dr pritchett</AttendingPhyMNE> <ConsultingPhyMNE>f pt consult dr pritchett</ConsultingPhyMNE> <FamilyPhyMNE>f pt fam dr pritchett</FamilyPhyMNE> <OtherPhyMNE>f pt other dr pritchett</OtherPhyMNE> < PrimaryPhyMNE>f pt prim care dr pritchett</PrimaryPhyMNE> <ReferringPhyMNE>f pt referring dr pritchett</ReferringPhyMNE> Impression Assessment and Plan Left lower external a cellulitis--patient was placed on vancomycin IV and ceftriaxone IV. His symptoms had not completely resolved from the previous episode, and it would be concern regarding the possibility of underlying osteomyelitis. I ordered an x-ray of the left lower extremity which primarily showed soft tissue edema and no bony change, but the patient will undergo a limited three-phase bone scan in the a.m. to assess for possible osteomyelitis. PAD--demonstrated at last hospitalization. We will continue aspirin 81 mg by mouth every afternoon. With the recurrence/ failure to heal properly of the previous infection, he may require more aggressive treatment, such as the addition of clopidogrel or Pletal. Hypertension--continue metoprolol tartrate 50 mg by mouth twice a day amlodipine 10 mg by mouth every morning, and aspirin 81 mg by mouth daily. GERD--continue ranitidine 150 mg by mouth at bedtime. Osteoporosis--takes vitamin D 50,000 units units by mouth 2 times per week as an outpatient. Level of Care Med/Surg Advanced Directives Existing Advance Directive: No Existing Living Will: No Existing Power of Fire Inspector: No Resuscitation Status FULL RESUSCITATION VTE Prophylaxis VTE Risk Assessment Done? Y/N: Yes Risk Level: Moderate
[2017-01-12] MEDS: ASPIRIN 81 MG ECTAB PO SCH (20:54)
[2017-01-12] MEDS: RANITIDINE HCL 150 MG TAB PO SCH (20:54)
[2017-01-12] MEDS: METOPROLOL TARTRATE 50 MG TAB PO SCH (21:22)
--- NOTE | 2017-01-12 22:32 | Pharmacy Progress Note ---
Pharmacy Antibiotic Consult Date of Service: Jan 12, 2017. Pharmacy Dosing Scope Pharmacy is consulted to initiate Vancomycin IV dosing therapy, order appropriate labs and adjust drug dose/frequency. Subjective The patient is a 71 year old male admitted on Jan 12, 2017 at 18:44. Objective Height (Feet): 5 Height (Inches): 7.00 Weight (Kilograms): 95.900 Lab Results (24hrs): Laboratory Tests Test 01/12/17 17:30 01/12/17 18:57 White Blood Count 10.04 K/uL Red Blood Count 4.90 M/uL Hemoglobin 15.2 g/dL Hematocrit 43.9 % Mean Corpuscular Volume 89.6 fL Mean Corpuscular Hemoglobin 31.0 pg Mean Corpuscular Hemoglobin Concent 34.6 g/dl Platelet Count 402 K/uL Mean Platelet Volume 10.7 fL Neutrophils (%) (Auto) 66.4 % Lymphocytes (%) (Auto) 19.3 % Monocytes (%) (Auto) 9.5 % Eosinophils (%) (Auto) 3.9 % Basophils (%) (Auto) 0.5 % Neutrophils # (Auto) 6.67 K/uL Lymphocytes # (Auto) 1.94 K/uL Monocytes # (Auto) 0.95 K/uL Eosinophils # (Auto) 0.39 K/uL Basophils # (Auto) 0.05 K/uL BUN/Creatinine Ratio 15.9 Blood Urea Nitrogen 10 mg/dl Creatinine 0.65 mg/dl Micro Results: Item Value Date Time Blood Culture Received 01/12/17 1733 Blood Pending Blood Culture Received 01/12/17 1730 Blood Pending Assessment & Plan Assessment * 71 y/o M empirically on IV Vancomycin and Ceftriaxone (not a consult) for recurrent cellulitis. He was recently admitted at [facility] 12/21-12/27/16 for the same problem and was discharged on a 7-day course of Augmentin and Bactrim DS, which he apparently completed and had improved, but cellulitis worsening. * Pharmacy followed and dosed the patient's Vancomycin last admission. He was on Vancomycin 1500mg IV q12, which resulted in trough levels of 13 mcg/mL (at steady state) and 10.5 mcg/mL. These levels are slightly subtherapeutic, therefore will keep the same dose and shorten dosing interval to target a higher trough level. Given his obesity, he may accumulate Vancomycin, therefore do not want to give large doses. * Renal function appears to be at baseline. Most recent sCr = 0.65 mg/dL with estimated CrCl >100 mL/min * Patient received Vancomycin 1000mg (~10mg/kg) IV x 1 in the ED. This is a lower than the usual 25mg/kg recommended loading dose, therefore will give an additional loading dose. Plan * Give Vancomycin 1400mg IV x 1 as an additional dose to equal total 25mg/kg loading dose * Initiate Vancomycin 1500mg IV q10 * Goal Vancomycin trough ~15 mcg/mL for cellulitis (given his recurrent cellulitis, will target for the upper end of the therapeutic range) * Trough level ordered for 01/14 @ 1330 (prior to the 4th dose and therefore should be reflective of steady state) Pharmacy will continue to follow and will adjust dose/frequency as necessary. Thank you
[2017-01-12] MEDS: CEFTRIAXONE SOD INJ 1 GM in DEXTROSE 5% ADD-VANTAGE 50ML 50 ML IV SCH (23:40)
[2017-01-13 00:24] VITALS: BP 145/76; PULSE 72; TEMP 36.5; O2SAT 95
[2017-01-13] MEDS: OXYCODONE/ACETAMINOPHEN 7.5-325 TAB PO PRN ×2 (00:40→15:17)
[2017-01-13 06:01] LABS: BASO % 0.5 %; BASO ABS # 0.04 K/uL (0-0.2); COMPLETE YES; EOS % 6.4 %; IG% 0.4 %; LYMPH % 33.8 %; LYMPH ABS # 2.81 K/uL (1.2-3.4); MEAN CELL VOLUME 89.4 fL (80-100); MEAN CORPUSCULAR HEMOGLOBIN 30.1 pg (25-34); MEAN CORPUSCULAR HGB CONC 33.7 g/dl (32-36); MEAN PLATELET VOLUME 9.9 fL (7.4-10.4); MONO % 9.9 %; PLATELET COUNT 394 K/uL (130-400); RED BLOOD COUNT 4.25 M/uL (4.7-6.1); WHITE BLOOD COUNT 8.31 K/uL (4.8-10.8)
[2017-01-13 06:21] LABS: BUN/CREATININE RATIO 16.8 (10-20); CALCIUM 8.3 mg/dl (8.5-10.1); CREATININE 0.75 mg/dl (0.60-1.40); MAGNESIUM 2.2 mg/dl (1.8-2.4); POTASSIUM 3.8 mmol/L (3.5-5.1)
[2017-01-13 07:22] VITALS: BP 144/74; PULSE 70; TEMP 36.6; O2SAT 97
[2017-01-13] MEDS: AMLODIPINE BESYLATE 5 MG TAB PO SCH (08:15)
[2017-01-13] MEDS: VANCOMYCIN INJ 1,500 MG in SODIUM CHLORIDE 0.9% 500ML 500 ML IV SCH ×2 (08:23→18:14)
[2017-01-13] MEDS: METOPROLOL TARTRATE 50 MG TAB PO SCH ×2 (08:58→19:26)
[2017-01-13] MEDS ORDERED: AMLODIPINE BESYLATE 5 MG TAB PO SCH (09:00)
[2017-01-13 15:10] VITALS: BP 124/68; PULSE 72; TEMP 36.4; O2SAT 98
--- NOTE | 2017-01-13 15:30 | Progress Note ---
Subjective Date of Service: Jan 13, 2017. Subjective Pt evaluation today including: conversation w/ patient, physical exam, chart review, lab review, review of studies, conversation w/ bath design sales consultant, review of inpatient medication list Voiding: no voiding problems Left lower extremity and ankle pain and swelling, however and the erythema is getting better after admission No fever and chill Problem List Medical Problems: (1) Left leg cellulitis Status: Acute Review of Systems Constitutional: No chills, No fatigue, No fever, No problem reported, No sweats , No weakness, No weight loss Eyes: No diplopia, No discharge, No eye pain, No redness, No worsening of vision ENT: No dental problems, No hearing loss, No nasal symptoms, No sore throat, No tinnitus, No trouble swallowing, No unusual epistaxis Respiratory: No cough, No dyspnea at rest, No dyspnea on exertion, No hemoptysis, No shortness of breath, No sputum, No wheezing Cardiac: No PND, No chest pain, No claudication, No edema, No orthopnea, No palpitations Abdomen: No constipation, No diarrhea, No nausea, No pain, No vomiting Musculoskeletal: No calf pain, No joint pain, No muscle pain, No swelling Male : No dysuria, No hematuria, No incontinence, No nocturia more than once/ night, No slowing stream, No urinary frequency Neurologic: No balance problems, No memory loss, No numbness/tingling, No paralysis, No vertigo, No weakness Psychiatric: No anhedonism, No anxiety, No depression symptoms, No insomnia, No substance abuse Heme: No abnormal bleeding/bruising, No clotting problems, No night sweats, No swollen lymph nodes Endo: No excessive thirst, No excessive urination, No fatigue Skin: + rash (in left lower extremity ankle area was swelling), No bleeding, No color change, No itch, No new/changing skin lesions Objective Vital Signs Date Time Temp Pulse Resp B/P Pulse Ox O2 Delivery O2 Flow Rate FiO2 01/13/17 15:10 36.4 72 18 124/68 98 Room Air 01/13/17 08:00 Room Air 01/13/17 07:22 36.6 70 18 144/74 97 Room Air 01/13/17 00:24 36.5 72 16 145/76 95 Room Air 01/12/17 23:30 Room Air 4/14/17 20:21 98 Room Air 01/12/17 20:18 36.5 86 16 154/76 01/12/17 19:33 88 16 171/93 98 Room Air 01/12/17 18:00 85 18 175/92 99 Room Air 01/12/17 17:02 84 01/12/17 16:48 86 19 167/74 98 Room Air Physical Exam General Appearance: WD/WN, no apparent distress Eyes: normal inspection, PERRL, EOMI, sclerae normal ENT: normal ENT inspection, hearing grossly normal, pharynx normal Neck: supple, no adenopathy, thyroid normal, no JVD, no carotid bruits, trachea midline Respiratory/Chest: chest non-tender, lungs clear, normal breath sounds, no respiratory distress, no accessory muscle use Cardiovascular: regular rate, rhythm, no edema, no gallop, no JVD, no murmur Abdomen: normal bowel sounds, non tender, soft, no organomegaly, no pulsatile mass Extremities: normal range of motion, non-tender, normal inspection, no pedal edema, no calf tenderness, normal capillary refill, pelvis stable Neurologic/Psychiatric: solution mixer II-XII nml as tested, no motor/sensory deficits, alert, normal mood/affect, oriented x 3 Skin: normal color, warm/dry, + pertinent finding (left lower extremity mild erythema and swelling but significantly bigger and then on the side) Lymphatic: no adenopathy Laboratory Results Last 24 Hours Test 01/12/17 17:30 01/12/17 18:57 01/13/17 05:28 White Blood Count 10.04 K/uL 8.31 K/uL Red Blood Count 4.90 M/uL 4.25 M/uL Hemoglobin 15.2 g/dL 12.8 g/dL Hematocrit 43.9 % 38.0 % Mean Corpuscular Volume 89.6 fL 89.4 fL Mean Corpuscular Hemoglobin 31.0 pg 30.1 pg Mean Corpuscular Hemoglobin Concent 34.6 g/dl 33.7 g/dl Platelet Count 402 K/uL 394 K/uL Mean Platelet Volume 10.7 fL 9.9 fL Neutrophils (%) (Auto) 66.4 % 49.0 % Lymphocytes (%) (Auto) 19.3 % 33.8 % Monocytes (%) (Auto) 9.5 % 9.9 % Eosinophils (%) (Auto) 3.9 % 6.4 % Basophils (%) (Auto) 0.5 % 0.5 % Neutrophils # (Auto) 6.67 K/uL 4.08 K/uL Lymphocytes # (Auto) 1.94 K/uL 2.81 K/uL Monocytes # (Auto) 0.95 K/uL 0.82 K/uL Eosinophils # (Auto) 0.39 K/uL 0.53 K/uL Basophils # (Auto) 0.05 K/uL 0.04 K/uL RDW Standard Deviation 47.0 fL 45.9 fL RDW Coefficient of Variation 14.4 % 14.0 % Immature Granulocyte % (Auto) 0.4 % 0.4 % Immature Granulocyte # (Auto) 0.04 K/uL 0.03 K/uL Sodium Level 143 mmol/L 140 mmol/L Potassium Level 3.7 mmol/L 3.8 mmol/L Chloride Level 107 mmol/L 107 mmol/L Carbon Dioxide Level 27 mmol/L 26 mmol/L Anion Gap 9.0 mmol/L 7.0 mmol/L Blood Urea Nitrogen 10 mg/dl 13 mg/dl Creatinine 0.65 mg/dl 0.75 mg/dl Est Creatinine Clear Calc Drug Dose 118.4 ml/min 102.6 ml/min Estimated GFR () 115.1 108.5 Estimated GFR (Non- 99.3 93.6 BUN/Creatinine Ratio 15.9 16.8 Random Glucose 80 mg/dl 105 mg/dl Calcium Level 8.6 mg/dl 8.3 mg/dl Magnesium Level 2.2 mg/dl Assessment and Plan 71-year-old white male admitted on 01/12/2017 because of Left lower external a cellulitis Patient was recently discharged on 01/02/2017 for the same problem. In previous admission he has LLE cellulitis was treated with IV antibiotic therapy and gradually improved over his 6-day stay. Blood cultures remained negative while here. Venous doppler study of the left leg was negative for DVT. Arterial doppler study showed mild PAD but per report the left leg has sufficient blood flow for adequate healing. He was seen formally by vascular surgery due to his chronic complaints of leg claudication and the arterial doppler findings. Vascular surgery felt that many of his symptoms could be neurogenic in origin from lumbar spine disease. Vascular surgery recommended follow-up with a back specialist . Left lower external a cellulitis and edema PAD--demonstrated at last hospitalization, Stable and improving continue on vancomycin IV and ceftriaxone IV. Need to rule out osteomyelitis, f/u limited three-phase bone scan in the a.m. to assess for possible osteomyelitis. No DVT in previous admission to [facility] continue aspirin 81 mg by mouth every afternoon. With the recurrence/ failure to heal properly of the previous infection, he may require more aggressive treatment, such as the addition of clopidogrel or Pletal. Hypertension--continue metoprolol tartrate 50 mg by mouth twice a day amlodipine 10 mg by mouth every morning, and aspirin 81 mg by mouth daily. GERD--continue ranitidine 150 mg by mouth at bedtime. Osteoporosis--takes vitamin D 50,000 units units by mouth 2 times per week as an outpatient. Vitamin D deficiency, see above talk with patient answered all questions Continue current care, infectious disease consult or lower extremity MRI if needed Continued [facility] stay due to: multiple IV medications needed Discharge planning: home
[2017-01-13] MEDS: RANITIDINE HCL 150 MG TAB PO SCH (19:27)
[2017-01-13] MEDS: ASPIRIN 81 MG ECTAB PO SCH (19:27)
[2017-01-13] MEDS: CEFTRIAXONE SOD INJ 1 GM in DEXTROSE 5% ADD-VANTAGE 50ML 50 ML IV SCH (19:28)
[2017-01-13 20:00] VITALS: O2SAT 98
[2017-01-13 23:45] VITALS: BP 139/74; PULSE 66; TEMP 36.6; O2SAT 96
[2017-01-14] VITALS (7 sets, daily range): BP systolic 126–154; BP diastolic 77–90; PULSE 59–70; TEMP 36.4–36.7; O2SAT 95–98
[2017-01-14] MEDS: OXYCODONE/ACETAMINOPHEN 7.5-325 TAB PO PRN ×2 (03:57→14:34)
[2017-01-14] MEDS: VANCOMYCIN INJ 1,500 MG in SODIUM CHLORIDE 0.9% 500ML 500 ML IV SCH ×2 (04:20→14:33)
[2017-01-14 05:58] LABS: BASO % 0.8 %; BASO ABS # 0.06 K/uL (0-0.2); COMPLETE YES; EOS % 7.1 %; HEMATOCRIT 36.5 % (42-52); IG% 0.4 %; LYMPH % 29.8 %; LYMPH ABS # 2.36 K/uL (1.2-3.4); MEAN CELL VOLUME 89.2 fL (80-100); MEAN CORPUSCULAR HEMOGLOBIN 30.1 pg (25-34); MEAN CORPUSCULAR HGB CONC 33.7 g/dl (32-36); MEAN PLATELET VOLUME 9.6 fL (7.4-10.4); MONO % 12.1 %; NEUT % 49.8 %; PLATELET COUNT 334 K/uL (130-400); RED BLOOD COUNT 4.09 M/uL (4.7-6.1); WHITE BLOOD COUNT 7.91 K/uL (4.8-10.8)
[2017-01-14 06:29] LABS: BUN/CREATININE RATIO 16.3 (10-20); CALCIUM 8.2 mg/dl (8.5-10.1); CREATININE 0.71 mg/dl (0.60-1.40); MAGNESIUM 2.2 mg/dl (1.8-2.4); POTASSIUM 3.8 mmol/L (3.5-5.1)
[2017-01-14] MEDS: AMLODIPINE BESYLATE 5 MG TAB PO SCH (08:25)
[2017-01-14] MEDS: METOPROLOL TARTRATE 50 MG TAB PO SCH ×2 (08:25→21:01)
--- NOTE | 2017-01-14 11:01 | Progress Note ---
Subjective Date of Service: Jan 14, 2017. Subjective Pt evaluation today including: conversation w/ patient, conversation w/ family , physical exam, chart review, lab review, review of studies, review of inpatient medication list Continue to improving in the left lower extremity swelling and red, almost 70% better, however still complained about left lower anterior ken pain when in palpation Problem List Medical Problems: (1) Left leg cellulitis Status: Acute Review of Systems Constitutional: + fatigue, No chills, No fever, No problem reported, No sweats , No weakness, No weight loss Eyes: No diplopia, No discharge, No eye pain, No redness, No worsening of vision ENT: No dental problems, No hearing loss, No nasal symptoms, No sore throat, No tinnitus, No trouble swallowing, No unusual epistaxis Respiratory: No cough, No dyspnea at rest, No dyspnea on exertion, No hemoptysis, No shortness of breath, No sputum, No wheezing Cardiac: No PND, No chest pain, No claudication, No edema, No orthopnea, No palpitations Abdomen: No constipation, No diarrhea, No nausea, No pain, No vomiting Musculoskeletal: No calf pain, No joint pain, No muscle pain, No swelling Male : No dysuria, No hematuria, No incontinence, No nocturia more than once/ night, No slowing stream, No urinary frequency Neurologic: No balance problems, No memory loss, No numbness/tingling, No paralysis, No vertigo, No weakness Psychiatric: No anhedonism, No anxiety, No depression symptoms, No insomnia, No substance abuse Heme: No abnormal bleeding/bruising, No clotting problems, No night sweats, No swollen lymph nodes Endo: No excessive thirst, No excessive urination, No fatigue Skin: + see HPI, No bleeding, No color change, No new/changing skin lesions Objective Vital Signs Date Time Temp Pulse Resp B/P Pulse Ox O2 Delivery O2 Flow Rate FiO2 01/14/17 07:18 36.5 67 18 154/90 95 Room Air 01/14/17 00:00 98 Room Air 01/13/17 23:45 36.6 66 18 139/74 96 Room Air 01/13/17 20:00 98 Room Air 01/13/17 16:00 Room Air 01/13/17 15:10 36.4 72 18 124/68 98 Room Air Physical Exam General Appearance: WD/WN, no apparent distress, + obese Eyes: normal inspection, PERRL, EOMI, sclerae normal ENT: normal ENT inspection, hearing grossly normal, pharynx normal Neck: supple, no adenopathy, thyroid normal, no JVD, no carotid bruits, trachea midline Respiratory/Chest: chest non-tender, lungs clear, normal breath sounds, no respiratory distress, no accessory muscle use Cardiovascular: regular rate, rhythm, no edema, no gallop, no JVD, no murmur Abdomen: normal bowel sounds, non tender, soft, no organomegaly, no pulsatile mass Extremities: normal range of motion, non-tender, normal inspection, no pedal edema, no calf tenderness, normal capillary refill, pelvis stable, + swelling ( and left lower extremity erythema has 70% better, anterior ken has mild tender when palpation) Neurologic/Psychiatric: associate sales II-XII nml as tested, no motor/sensory deficits, alert, normal mood/affect, oriented x 3 Skin: normal color, warm/dry, no rash Lymphatic: no adenopathy Laboratory Results Last 24 Hours Test 01/14/17 05:34 White Blood Count 7.91 K/uL Red Blood Count 4.09 M/uL Hemoglobin 12.3 g/dL Hematocrit 36.5 % Mean Corpuscular Volume 89.2 fL Mean Corpuscular Hemoglobin 30.1 pg Mean Corpuscular Hemoglobin Concent 33.7 g/dl Platelet Count 334 K/uL Mean Platelet Volume 9.6 fL Neutrophils (%) (Auto) 49.8 % Lymphocytes (%) (Auto) 29.8 % Monocytes (%) (Auto) 12.1 % Eosinophils (%) (Auto) 7.1 % Basophils (%) (Auto) 0.8 % Neutrophils # (Auto) 3.94 K/uL Lymphocytes # (Auto) 2.36 K/uL Monocytes # (Auto) 0.96 K/uL Eosinophils # (Auto) 0.56 K/uL Basophils # (Auto) 0.06 K/uL RDW Standard Deviation 46.0 fL RDW Coefficient of Variation 14.0 % Immature Granulocyte % (Auto) 0.4 % Immature Granulocyte # (Auto) 0.03 K/uL Sodium Level 143 mmol/L Potassium Level 3.8 mmol/L Chloride Level 108 mmol/L Carbon Dioxide Level 27 mmol/L Anion Gap 8.0 mmol/L Blood Urea Nitrogen 12 mg/dl Creatinine 0.71 mg/dl Est Creatinine Clear Calc Drug Dose 108.4 ml/min Estimated GFR () 111.0 Estimated GFR (Non- 95.7 BUN/Creatinine Ratio 16.3 Random Glucose 95 mg/dl Calcium Level 8.2 mg/dl Magnesium Level 2.2 mg/dl Assessment and Plan 71-year-old white male admitted on 01/12/2017 because of Left lower external a cellulitis Patient was recently discharged on 01/02/2017 for the same problem. In previous admission he has LLE cellulitis was treated with IV antibiotic therapy and gradually improved over his 6-day stay. Blood cultures remained negative while here. Venous doppler study of the left leg was negative for DVT. Arterial doppler study showed mild PAD but per report the left leg has sufficient blood flow for adequate healing. He was seen formally by vascular surgery due to his chronic complaints of leg claudication and the arterial doppler findings. Vascular surgery felt that many of his symptoms could be neurogenic in origin from lumbar spine disease. Vascular surgery recommended follow-up with a back specialist . Left lower external a cellulitis and edema: Continue stable and significantly improved PAD--demonstrated at last hospitalization, continue on vancomycin IV and ceftriaxone IV, possible can downgrade to oral Keflex if has no osteomyelitis in MRI, he has no history of MRSA Need to rule out osteomyelitis, f/u limited three-phase bone scan was unremarkable I ordered MRI today because and left lower extremity erythema has 70% better, anterior ken has mild tender when palpation, and this is his recurrent cellulitis No DVT in previous admission to [facility] continue aspirin 81 mg by mouth every afternoon. With the recurrence/ failure to heal properly of the previous infection, he may require more aggressive treatment, I add Pletal. Hypertension--continue metoprolol tartrate 50 mg by mouth twice a day amlodipine 10 mg by mouth every morning, and aspirin 81 mg by mouth daily. GERD--continue ranitidine 150 mg by mouth at bedtime. Osteoporosis--takes vitamin D 50,000 units units by mouth 2 times per week as an outpatient. Vitamin D deficiency, see above talk with patient answered all questions Continue current care, f/u lower extremity MRI, I ordered ESR and CRP, possible can downgrade to oral antibiotics and discharged home soon, I will recommend Levaquin for 10 days if has no osteomyelitis, in last discharge he was sending home with augmentin and bactrim. Therefore I will not put them up again Continued [facility] stay due to: multiple IV medications needed Discharge planning: home
[2017-01-14] MEDS ORDERED: VANCOMYCIN TROUGH ONE (13:30)
[2017-01-14] MEDS ORDERED: GADAVIST IV PRN (14:15)
--- NOTE | 2017-01-14 14:32 | Pharmacy Progress Note ---
Pharmacy Antibiotic Prog Note Date of Service Jan 14, 2017. Subjective The patient is currently receiving Vancomycin 1500 mg IV every 10 hours. The patient is currently on day # 3 of IV therapy. Objective Height (Feet): 5 Height (Inches): 7.00 Weight (Kilograms): 96.000 Levels: Item Value Date Time Vancomycin Level Trough 19.1 mcg/ml 01/14/17 1240 Lab Results (24hrs): Laboratory Tests Test 01/14/17 05:34 BUN/Creatinine Ratio 16.3 Blood Urea Nitrogen 12 mg/dl Creatinine 0.71 mg/dl White Blood Count 7.91 K/uL Red Blood Count 4.09 M/uL Hemoglobin 12.3 g/dL Hematocrit 36.5 % Mean Corpuscular Volume 89.2 fL Mean Corpuscular Hemoglobin 30.1 pg Mean Corpuscular Hemoglobin Concent 33.7 g/dl Platelet Count 334 K/uL Mean Platelet Volume 9.6 fL Neutrophils (%) (Auto) 49.8 % Lymphocytes (%) (Auto) 29.8 % Monocytes (%) (Auto) 12.1 % Eosinophils (%) (Auto) 7.1 % Basophils (%) (Auto) 0.8 % Neutrophils # (Auto) 3.94 K/uL Lymphocytes # (Auto) 2.36 K/uL Monocytes # (Auto) 0.96 K/uL Eosinophils # (Auto) 0.56 K/uL Basophils # (Auto) 0.06 K/uL Micro Results: Item Value Date Time Blood Culture - Preliminary Resulted 01/12/17 1730 Blood NO GROWTH TO DATE. Blood Culture - Preliminary Resulted 01/12/17 1733 Blood NO GROWTH TO DATE. Assessment & Plan Assessment 71 y/o male receiving Vancomycin and Ceftriaxone (not a consult) for recurrent LLE cellulitis, r/o osteo. * Recent admission at [facility] 12/21-12/27/16 for LLE cellulitis. Patient was discharged on a 7-day course of Augmentin + Bactrim DS. * Cultures negative to date Plan Continue Vancomycin IV for treatment of LLE cellulitis, r/o osteo * Therapeutic trough level of 19.1 mcg/mL * Continue 1500 mg IV every 10 hours * Goal trough level for cellulitis with possible osteo: 15 - 20 mcg/mL * Will order repeat trough level if patient continues on Vancomycin or if there is a change in renal function/clinical status Pharmacy will continue to follow and will adjust dose/frequency as necessary. Thank you
--- NOTE | 2017-01-14 14:54 | DIAGNOSTIC IMAGING REPORT ---
MRI OF THE LEFT TIBIA AND FIBULA COMBO CLINICAL HISTORY: Left lower extremity cellulitis. COMPARISON STUDY: Radiographs of the left tibia and fibula dated 01/12/2017. CT runoff of the left lower extremity dated 10/12/2016. TECHNIQUE: MRI of the left tibia and fibula is performed utilizing various T1 and T2-weighted sequences in the axial, sagittal, and coronal planes. Contrast-enhanced sequences were acquired following the IV administration of 10 cc of Gadavist. The examination is significantly degraded by motion artifact. FINDINGS: There is diffuse edema of the subcutaneous soft tissues throughout the left lower extremity. There is nonspecific patchy abnormal enhancement, and the appearance is typical for cellulitis. There is subcutaneous fluid with no organized fluid collection identified to suggest abscess. No intramuscular edema is identified. There is mild fatty atrophy of the calf musculature. The calf vessels are patent as visualized. Normal marrow signal intensity is preserved throughout the tibia and fibula. The Achilles tendon is normal in morphology and signal intensity. IMPRESSION: 1. Findings are consistent with the reported clinical history of cellulitis throughout the left lower extremity. No organized fluid collection is seen to suggest abscess. 2. Normal marrow signal intensity is preserved throughout the left tibia and fibula. Dictated: 01/14/2017 2:25 PM Transcribed: 01/14/2017 2:53 PM MARIO [email or web address]_Barry Electronically signed by: Ramses Bermudez M.D. 01/14/2017 3:18 PM Dictated Date/Time: 01/14/2017 2:25 PM
[2017-01-14] MEDS: RANITIDINE HCL 150 MG TAB PO SCH (21:01)
[2017-01-14] MEDS: ASPIRIN 81 MG ECTAB PO SCH (21:02)
[2017-01-15 05:52] LABS: BASO % 0.6 %; BASO ABS # 0.05 K/uL (0-0.2); COMPLETE YES; EOS % 6.5 %; HEMATOCRIT 39.2 % (42-52); IG% 0.5 %; LYMPH % 26.8 %; LYMPH ABS # 2.09 K/uL (1.2-3.4); MEAN CELL VOLUME 88.7 fL (80-100); MEAN CORPUSCULAR HEMOGLOBIN 30.3 pg (25-34); MEAN CORPUSCULAR HGB CONC 34.2 g/dl (32-36); MEAN PLATELET VOLUME 9.7 fL (7.4-10.4); MONO % 12.6 %; PLATELET COUNT 340 K/uL (130-400); RED BLOOD COUNT 4.42 M/uL (4.7-6.1); WHITE BLOOD COUNT 7.79 K/uL (4.8-10.8)
[2017-01-15 06:17] LABS: CALCIUM 8.7 mg/dl (8.5-10.1); CREATININE 0.82 mg/dl (0.60-1.40); MAGNESIUM 2.4 mg/dl (1.8-2.4); POTASSIUM 4.3 mmol/L (3.5-5.1)
[2017-01-15 07:22] VITALS: BP_SYST 147; BP_SYST 159; BP_DIAS 79; BP_DIAS 82; PULSE 63; TEMP 36.3; O2SAT 92
[2017-01-15] MEDS: METOPROLOL TARTRATE 50 MG TAB PO SCH ×2 (07:48→20:47)
[2017-01-15] MEDS: AMLODIPINE BESYLATE 5 MG TAB PO SCH (07:49)
[2017-01-15] MEDS: LEVOFLOXACIN 750 MG TAB PO SCH (11:16)
--- NOTE | 2017-01-15 13:06 | Progress Note ---
Subjective Date of Service: Jan 15, 2017. Subjective Pt evaluation today including: conversation w/ patient Pt is feeling much better. No change to L LE noted overnight and overall improved from prior to readmission. Pt's last dose of vanco was 01/14 at 233p, had no received first dose of levaquin yet this AM. Pt showed me a photo of his LE prior to original admission. He states it was not nearly as severe prior to readmission, but was getting worse after he finished his course of abx. Still with some L LE swelling and states it feels "hard" to him to push on his calf. Pt denies fever, SOB, chest pain, abd pain, n/v/c/d. ROS as noted above, otherwise neg. Problem List Medical Problems: (1) Left leg cellulitis Status: Acute Objective Vital Signs Date Time Temp Pulse Resp B/P Pulse Ox O2 Delivery O2 Flow Rate FiO2 01/15/17 08:25 Room Air 01/15/17 07:22 36.3 63 20 159/82 92 Room Air 147/79 01/15/17 00:19 Room Air 01/14/17 23:44 36.7 59 20 136/83 96 Room Air 01/14/17 19:59 95 Room Air 01/14/17 16:00 95 Room Air 01/14/17 15:06 36.4 70 18 126/77 96 Room Air Physical Exam General Appearance: WD/WN, no apparent distress Respiratory/Chest: normal breath sounds, no respiratory distress Cardiovascular: regular rate, rhythm, + normal peripheral pulses Abdomen: non tender, soft Extremities: + pedal edema (trace), + pertinent finding (mild pink discoloration noted on anterior lower leg) Neurologic/Psychiatric: alert, normal mood/affect, oriented x 3 Skin: normal color, warm/dry Laboratory Results Last 24 Hours Test 01/15/17 05:35 White Blood Count 7.79 K/uL Red Blood Count 4.42 M/uL Hemoglobin 13.4 g/dL Hematocrit 39.2 % Mean Corpuscular Volume 88.7 fL Mean Corpuscular Hemoglobin 30.3 pg Mean Corpuscular Hemoglobin Concent 34.2 g/dl Platelet Count 340 K/uL Mean Platelet Volume 9.7 fL Neutrophils (%) (Auto) 53.0 % Lymphocytes (%) (Auto) 26.8 % Monocytes (%) (Auto) 12.6 % Eosinophils (%) (Auto) 6.5 % Basophils (%) (Auto) 0.6 % Neutrophils # (Auto) 4.12 K/uL Lymphocytes # (Auto) 2.09 K/uL Monocytes # (Auto) 0.98 K/uL Eosinophils # (Auto) 0.51 K/uL Basophils # (Auto) 0.05 K/uL RDW Standard Deviation 45.2 fL RDW Coefficient of Variation 13.8 % Immature Granulocyte % (Auto) 0.5 % Immature Granulocyte # (Auto) 0.04 K/uL Sodium Level 141 mmol/L Potassium Level 4.3 mmol/L Chloride Level 106 mmol/L Carbon Dioxide Level 27 mmol/L Anion Gap 8.0 mmol/L Blood Urea Nitrogen 12 mg/dl Creatinine 0.82 mg/dl Est Creatinine Clear Calc Drug Dose 93.9 ml/min Estimated GFR () 104.6 Estimated GFR (Non- 90.2 BUN/Creatinine Ratio 14.0 Random Glucose 87 mg/dl Calcium Level 8.7 mg/dl Magnesium Level 2.4 mg/dl Chemistry Specimen Hemolysis Assessment and Plan 71 y/o M admitted on 01/12/2017 with LLE cellulitis Patient was recently discharged on 01/02/2017 for the same problem. In previous admission he has LLE cellulitis was treated with IV antibiotic therapy and gradually improved over his 6-day stay. Blood cultures remained negative while here. Venous doppler study of the left leg was negative for DVT. Arterial doppler study showed mild PAD but per report the left leg has sufficient blood flow for adequate healing. He was seen formally by vascular surgery due to his chronic complaints of leg claudication and the arterial doppler findings. Vascular surgery felt that many of his symptoms could be neurogenic in origin from lumbar spine disease. Vascular surgery recommended follow-up with a back specialist. Pt finished course of PO augmentin and bactrim as outpt, however shortly after he finished abx his LLE redness, pain, swelling started to return. PCP recommended to return to ED Left lower external a cellulitis and edema: Continue stable and significantly improved PAD--demonstrated at last hospitalization, Vancomycin IV and ceftriaxone IV on admission 01/12, changed to PO levaquin this AM given no osteomyelitis in MRI, no history of MRSA Need to rule out osteomyelitis, f/u limited three-phase bone scan was unremarkable No DVT on prior admission continue aspirin 81 mg by mouth every afternoon. With the recurrence/ failure to heal properly of the previous infection, he may require more aggressive treatment Will avoid augmentin and bactrim given recurrence Hypertension--continue metoprolol tartrate 50 mg by mouth twice a day amlodipine 10 mg by mouth every morning, and aspirin 81 mg by mouth daily. GERD--continue ranitidine 150 mg by mouth at bedtime. Osteoporosis--takes vitamin D 50,000 units units by mouth 2 times per week as an outpatient. Vitamin D deficiency, see above Pt will not be without vanco for 24hrs until later today. Monitor with first dose of levaquin today given prior recurrence requiring readmission. If cellulitis is not worsening, can likely d/c tomorrow Continued [facility] stay due to: multiple IV medications needed Discharge planning: home
--- NOTE | 2017-01-15 13:42 | DIAGNOSTIC IMAGING REPORT ---
3 phase limited bone scan BONE SCAN 3 PHASE LIMITED CLINICAL HISTORY: LEFT LOWER EXTREMITY, RECURRENT CELLULITIS, ASSESS FOR OSTEO, cellulitis TECHNIQUE: Multiphase post administration of 25.4 mCi technetium 99m HDP COMPARISON STUDY: Lower leg images dated 01/12/2017 FINDINGS: Increased vascular flow to the left lower leg compared to the right. Flow on the blood pool as well as delayed images appears to be isolated to the soft tissues. Patient is most consistent with that of cellulitis. No abnormal bone specific characteristics are identified. IMPRESSION: Soft tissue cellulitis. No evidence for osteomyelitis. Electronically signed by: Jesse Valencia M.D. 01/15/2017 1:39 PM Dictated Date/Time: 01/15/2017 1:38 PM
[2017-01-15 15:10] VITALS: BP 135/78; PULSE 63; TEMP 36.5; O2SAT 92
[2017-01-15] MEDS: OXYCODONE/ACETAMINOPHEN 7.5-325 TAB PO PRN (19:34)
[2017-01-15 20:45] VITALS: BP 149/77; PULSE 71
[2017-01-15] MEDS: RANITIDINE HCL 150 MG TAB PO SCH (20:47)
[2017-01-15] MEDS: ASPIRIN 81 MG ECTAB PO SCH (20:47)
[2017-01-16 07:25] VITALS: BP 155/82; PULSE 69; TEMP 36.3; O2SAT 97
[2017-01-16] MEDS: METOPROLOL TARTRATE 50 MG TAB PO SCH (07:41)
[2017-01-16] MEDS: AMLODIPINE BESYLATE 5 MG TAB PO SCH (07:42)
[2017-01-16] MEDS ORDERED: OXYC2.5T4 PO (09:27)
[2017-01-16] MEDS ORDERED: LVQ750 PO (09:27)
--- NOTE | 2017-01-16 09:29 | Discharge Instructions ---
Discharge Instructions Date of Service Jan 16, 2017. Admission Reason for Admission: Cellulitis Of Left Lower Extremity Discharge Discharge Diagnosis / Problem: Recurrent cellulitis of L lower extremity Discharge Goals Goal(s): Decrease discomfort, Improve function, Increase independence Activity Recommendations Activity Limitations: resume your previous activity . Instructions / Follow-Up Instructions / Follow-Up Dr. Fuller in 3 days and again late next week Current Hospital Diet Patient's current hospital diet: AHA Diet (Heart Healthy) Discharge Diet Recommended Diet: Regular Diet Pending Studies Studies pending at discharge: no Medical Emergencies . Who to Call and When: Medical Emergencies: If at any time you feel your situation is an emergency, please call 911 immediately. . Non-Emergent Contact Non-Emergency issues call your: Primary Care Provider . . "Provider Documentation" section prepared by Dayana Robert. VTE Core Measure Inpt VTE Proph given/why not?: Treatment not indicated
--- NOTE | 2017-01-16 09:33 | Discharge Summary ---
Discharge Summary Date of Service Jan 16, 2017. Discharge Summary Admission Date: Jan 12, 2017 at 18:44 Discharge Date: Jan 16, 2017 Discharge Disposition: Home Principal Diagnosis: Recurrent LLE cellulitis Problems/Secondary Diagnoses: HTN GERD LE claudication Medication Reconciliation New Medications: Oxycodone/Acetaminophen 2.5MG/325MG (Oxycodone/Acetaminophen 2.5MG/325MG) 1 Tab Tab 1 TAB PO Q4H PRN for Pain, #15 TAB Levofloxacin (Levofloxacin) 750 Mg Tab 750 MG PO DAILY@11 for 10 Days, #10 TAB Continued Medications: Acetaminophen (Tylenol) 325 Mg Tab 650 MG PO DIRECTED PRN for Pain, TAB Amlodipine (Norvasc) 10 Mg Tab 10 MG PO QAM, TAB Aspirin (Aspir-81) 81 Mg Tab 81 MG PO QPM Ergocalciferol (Vitamin D 42591 Unit) 50,000 Unit Cap 66794 UNIT PO 2XWK, CAP TAKES ON WED & SUN. Metoprolol Tartrate (Lopressor) 50 Mg Tab 50 MG PO BID, TAB Ranitidine (Zantac) 150 Mg Tab 150 MG PO HS, TAB Discharge Exam Pt is doing well. LLE continues to improve. Still with swelling and some pain around the ankle, but also better. Pt denies fever, SOB, chest pain, abd pain, n/v/c/d. Tolerating PO without issue. ROS as noted above, otherwise neg. Physical Exam: General Appearance: WD/WN, no apparent distress Respiratory/Chest: normal breath sounds, no respiratory distress Cardiovascular: regular rate, rhythm, normal peripheral pulses Abdomen / GI: non tender, soft Extremities: + pedal edema (trace pitting, improved from yesterday. TTP around ankle, also improved) Neurologic/Psychiatric: alert, normal mood/affect, oriented x 3 Skin: normal color, warm/dry Hospital Course 71 y/o M admitted on 01/12/2017 with LLE cellulitis Patient was recently discharged on 01/02/2017 for the same problem. In previous admission he has LLE cellulitis was treated with IV antibiotic therapy and gradually improved over his 6-day stay. Blood cultures remained negative while here. Venous doppler study of the left leg was negative for DVT. Arterial doppler study showed mild PAD but per report the left leg has sufficient blood flow for adequate healing. He was seen formally by vascular surgery due to his chronic complaints of leg claudication and the arterial doppler findings. Vascular surgery felt that many of his symptoms could be neurogenic in origin from lumbar spine disease. Vascular surgery recommended follow-up with a back specialist. Pt finished course of PO augmentin and bactrim as outpt, however shortly after he finished abx his LLE redness, pain, swelling started to return. PCP recommended to return to ED Left lower external a cellulitis and edema: Continue stable and significantly improved PAD--demonstrated at last hospitalization, Vancomycin IV and ceftriaxone IV on admission 01/12, changed to PO levaquin on given no osteomyelitis in MRI, no history of MRSA and LLE has continued to improve at >24hrs s/p last vanco dosing Blood cx are again neg x2 f/u MRI and limited three-phase bone scan are unremarkable for osteomyelitis No DVT on prior admission continue aspirin 81 mg by mouth every afternoon. With the recurrence/ failure to heal properly of the previous infection, he may require more aggressive treatment Will avoid augmentin and bactrim given recurrence, will complete a course of levaquin on d/c CM will be arranging close f/u for pt on d/c. If there is recurrence of LLE cellulitis, would advise pt be seen by ID given neg blood cx and no osteomyelitis noted. This was discussed with pt also. Hypertension--continue metoprolol tartrate 50 mg by mouth twice a day amlodipine 10 mg by mouth every morning, and aspirin 81 mg by mouth daily. GERD--continue ranitidine 150 mg by mouth at bedtime. Osteoporosis--takes vitamin D 50,000 units units by mouth 2 times per week as an outpatient. Vitamin D deficiency, see above Total Time Spent: Greater than 30 minutes This includes examination of the patient, discharge planning, medication reconciliation, and communication with other providers. Discharge Instructions Please refer to the electronic Patient Visit Report (Discharge Instructions) for additional information. Follow-Up Dr. Fuller in 3 days and again late next week Additional Copies To Urvashi Fuller D.O.
[2017-01-16 10:06] VITALS: BP 155/82; PULSE 69; TEMP 36.3; O2SAT 97
[2017-01-16] MEDS: LEVOFLOXACIN 750 MG TAB PO SCH (11:01)
== END 2017-01-16 12:11 | disposition home or self-care (01) | DRG 603 ==
LOC: ENRESERVTM → ENRESERVDT → C.EDB 14:01 → C.MS2W 18:44
PROVIDERS: ADMIT Hospitalist; ATTEND Family Medicine
DX: L03.116 Cellulitis of left lower limb (principal); I10 Essential (primary) hypertension; K21.9 Gastro-esophageal reflux disease without esophagitis; M81.0 Age-related osteoporosis without current pathological fracture; E55.9 Vitamin D deficiency, unspecified; R60.0 Localized edema; I73.9 Peripheral vascular disease, unspecified; Z87.891 Personal history of nicotine dependence; Z79.82 Long term (current) use of aspirin; Z79.899 Other long term (current) drug therapy